=== PATIENT | female | born 1955 | race Caucasian/White ===

== ENCOUNTER 2016-08-10 16:32 | Emergency (ER) | payer OTHER, MEDICARE ==
[2016-08-10] MEDS ORDERED: ONDANSETRON 4 MG/2 ML VIAL IVP STA (17:00)
[2016-08-10] MEDS ORDERED: ONDANSETRON 4 MG/2 ML VIAL ONE (17:21)
[2016-08-10] MEDS ORDERED: HYDROmorphone 1 MG/ML SYRINGE IVP STA (17:22)
[2016-08-10] MEDS ORDERED: HYDROmorphone 1 MG/ML SYRINGE ONE (17:35)
[2016-08-10] MEDS ORDERED: PROPARACAINE 0.5% OPHTH DROPS 15 ML ONE (18:25)
[2016-08-10] MEDS ORDERED: PROPARACAINE 0.5% OPHTH DROPS 15 ML RIGHTEYE STA (18:25)
[2016-08-10] MEDS ORDERED: HYDROcod/ACET 5/325 Prepack 6 PO STA (18:30)
[2016-08-10] MEDS ORDERED: HYDROcod/ACET 5/325 Prepack 6 PO ONE (18:35)
== END 2016-08-10 18:48 | disposition home or self-care (01) ==
DX: S00.11XA Contusion of right eyelid and periocular area, initial encounter (principal); W01.190A Fall on same level from slipping, tripping and stumbling with subsequent striking against furniture, initial encounter; Y92.023 Bedroom in mobile home as the place of occurrence of the external cause; I10 Essential (primary) hypertension; E03.9 Hypothyroidism, unspecified; K74.60 Unspecified cirrhosis of liver; M79.7 Fibromyalgia; Z87.891 Personal history of nicotine dependence
CPT/HCPCS: 36415; 70450; 70486; 80053; 83690; 85025; 85610; 85730; 96374; 96375; 99283; 99284; J1170; J3490

== ENCOUNTER 2017-09-02 11:40 | Outpatient (CLI) | payer OTHER, MEDICARE | END 2017-09-02 11:41 | disposition critical access hospital (66) | LOC: EMS 11:40 | PROVIDERS: ATTEND Surgery | DX: R06.00 Dyspnea, unspecified (principal); R05 Cough | CPT/HCPCS: A0425; A0427 ==

== ENCOUNTER 2017-09-02 12:35 | Emergency (ER) | payer OTHER, MEDICARE ==
--- NOTE | 2017-09-02 13:41 | XRAY Report ---
EXAM: CHEST RADIOGRAPHY EXAM DATE: 09/02/2017 01:26 PM. CLINICAL HISTORY: Productive cough, soa. COMPARISON: None. TECHNIQUE: 2 views. FINDINGS: There is minimal scar of the left upper lung. The lungs appear otherwise clear. No pneumothorax or pleural effusion. Mediastinum otherwise unremark able. 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 is noted. IMPRESSION: No evidence of acute thoracic process [facility] Referring Provider Line: [phone] SITE ID: [id number]
[2017-09-02] MEDS ORDERED: IPRATROPIUM/ALBUTEROL 3 ML NEB INH STA (13:53)
[2017-09-02] MEDS ORDERED: DEXAMETHASONE 10 MG/ML VIAL IVP STA (13:54)
[2017-09-02] MEDS ORDERED: oxyCOD/ACETAMIN 5 MG/325 MG TABLET PO STA (13:54)
--- NOTE | 2017-09-02 13:59 | ED Physician Documentation ---
PD HPI DYSPNEA - Stated complaint Stated Complaint: COPD - Chief complaint Chief Complaint: Resp - History obtained from History obtained from: Patient - History of Present Illness Timing - onset: How many weeks ago (1) Timing - details: Waxing and waning Worsened by: Coughing Associated symptoms: Fever, Cough, Chest pain / discomfort Similar symptoms before: Diagnosis (COPD) - Treatment prior to arrival Treatment prior to arrival: Medics administered DuoNeb. - Additional information Additional information: Patient is a 62-year-old female with history of COPD who presents with shortness of breath that has been waxing and waning for the past week. She reports productive cough and low-grade fever to 100. She also has been experiencing chest discomfort that she describes as "like someone sitting on it. " Her pain is been waxing and waning for the past week. In addition she complains of myalgias, fatigue, headache, vomiting, and dysuria. She reports having chronic loose stools. Because of chronic pain syndrome she takes Dilaudid 2 mg 4 times daily. Last week she finished a course of doxycycline and burst of prednisone. Medics administered DuoNeb in the prehospital setting. Review of Systems Constitutional: reports: Fever, Myalgias, Fatigue Ears: denies: Tinnitus/ringing Nose: denies: Congestion Throat: denies: Sore throat Cardiac: reports: Chest pain / pressure. denies: Palpitations Respiratory: reports: Dyspnea, Cough GI: reports: Abdominal Pain, Nausea, Vomiting, Diarrhea : reports: Dysuria Skin: denies: Rash Musculoskeletal: denies: Back pain, Extremity swelling Neurologic: reports: Headache. 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 - Present Medications Home Medications: Ambulatory Orders Medication Instructions Recorded Confirmed Albuterol Sulfate 0 mg IH 06/10/13 10/15/14 Beclomethasone 40 Mcg [Qvar 40] 1 puffs INH BID 06/10/13 10/15/14 Hydrocodone/Acetaminophen [Vicodin 1 each PO Q6-8H PRN #15 tablet 06/10/1310/15 Es 7.5-300 mg Tablet] Ipratropium/Albuterol Inhaler 2 puffs INH QID PRN 06/10/13 10/15/14 [Combivent Inhaler] Levofloxacin 750 mg PO DAILY #10 tablet 06/10/13 10/15/14 Levothyroxine [Synthroid] 100 mcg PO QDAC 06/10/13 10/15/14 Lorazepam 2 mg PO BID 06/10/13 10/15/14 SUMAtriptan [Imitrex] 100 mg PO ONCE PRN 06/10/13 10/15/14 Topiramate 25 mg PO DAILY 06/10/13 10/15/14 Zolpidem [Ambien] 5 mg PO HS PRN 06/10/13 10/15/14 predniSONE [Deltasone] 60 mg PO DAILY 5 Days tablet 06/10/13 10/15/14 Azithromycin [Zithromax] 250 mg PO DAILY #6 tablet 09/02/17 HYDROmorphone [Dilaudid] 2 mg PO Q6H #10 tablet 09/02/17 predniSONE [Prednisone] 3 tab PO DAILY #15 tablet 09/02/17 - Allergies Allergies/Adverse Reactions: Allergies Allergy/AdvReac Type Severity Reaction Status Date / Time codeine [Codeine] Allergy tacycardia Verified 09/02/17 12:46 erythromycin base Allergy Hives Verified 09/02/17 12:46 [Erythromycin Base] ibuprofen [From Motrin] Allergy unknown Verified 09/02/17 12:46 ketorolac tromethamine * AdvReac Intermediate Dizziness Verified 09/02/17 12:46 [From Toradol] - Social History Does the pt smoke?: No Smoking Status: Former smoker Does the pt drink ETOH?: No Does the pt have substance abuse?: No - Immunizations Immunizations are current?: Yes PD ED PE NORMAL - Vitals Vital signs reviewed: Yes (Mildly tachycardic and hypertensive.) - General General: Alert and oriented X 3, Well developed/nourished, Other (Appears chronically deconditioned.) - HEENT HEENT: Atraumatic, EOMI, Moist mucous membranes, Pharynx benign - Neck Neck: No adenopathy, No JVD - Cardiac Cardiac: RRR, No murmur - Respiratory Respiratory: Other (Diffuse expiratory wheezing bilaterally without rales or rhonchi. Tenderness to palpation of the chest wall bilaterally.) - Abdomen Abdomen: Soft, Non tender - Back Back: No CVA TTP - Derm Derm: No rash - Extremities Extremities: No edema, No calf tenderness / cord - Neuro Neuro: Alert and oriented X 3, No motor deficit, No sensory deficit Results - Vitals Vitals: Vital Signs - 24 hr 09/02/17 09/02/17 09/02/17 12:41 14:29 14:33 Temperature 36.2 C L Heart Rate 102 H 102 H 103 H Respiratory 18 17 16 Rate Blood Pressure 145/100 H 138/76 H O2 Saturation 96 99 09/02/17 09/02/17 09/02/17 14:55 15:30 16:34 Temperature Heart Rate 106 H 99 109 H Respiratory 17 16 20 Rate Blood Pressure 153/103 H 155/89 H O2 Saturation 95 95 09/02/17 18:08 Temperature Heart Rate 100 Respiratory 18 Rate Blood Pressure 141/88 H O2 Saturation 96 Oxygen O2 Source Room air - EKG (time done) 12:54 Rate: Rate (enter#) (101) Rhythm: Sinus tachycardia, LAE [place]: Normal Intervals: Prolonged QT Ischemia: Non specific changes Compare to prior EKG: Unchanged from prior EKG (Unchanged compared to prior EKG dated 10/15/2014.) Computer interpretation: Agree with computer - Labs Labs: Laboratory Tests 09/02/17 09/02/17 09/02/17 13:56 13:56 13:56 WBC 9.3 RBC 5.11 Hgb 14.9 Hct 44.1 MCV 86.4 MCH 29.1 MCHC 33.7 RDW 14.9 Plt Count 336 MPV 6.9 L Neut # 7.3 H Lymph # 1.6 [place] # 0.4 Eos # 0.0 Baso # 0.1 Absolute Nucleated RBC 0.00 Nucleated RBC % 0.0 Sodium 137 Potassium 4.1 Chloride 102 Carbon Dioxide 22 Anion Gap 13.0 BUN 10 Creatinine 0.8 Estimated GFR (MDRD) 73 L Glucose 109 H Calcium 9.1 Total Bilirubin 1.3 H AST 27 ALT 25 Alkaline Phosphatase 81 Troponin I < 0.04 Total Protein 6.9 Albumin 4.2 Globulin 2.7 Albumin/Globulin Ratio 1.6 Lipase 23 Influenza A (Rapid) Influenza B (Rapid) Influenza Types A,B Ag 09/02/17 16:59 WBC RBC Hgb Hct MCV MCH MCHC RDW Plt Count MPV Neut # Lymph # [place] # Eos # Baso # Absolute Nucleated RBC Nucleated RBC % Sodium Potassium Chloride Carbon Dioxide Anion Gap BUN Creatinine Estimated GFR (MDRD) Glucose Calcium Total Bilirubin AST ALT Alkaline Phosphatase Troponin I Total Protein Albumin Globulin Albumin/Globulin Ratio Lipase Influenza A (Rapid) Negative Influenza B (Rapid) Negative Influenza Types A,B Ag - - Rads (name of study) CXR Radiology: Prelim report reviewed, EMP read contemporaneously, See rad report ( No acute intrathoracic process identified.) PD MEDICAL DECISION MAKING - ED course Complexity details: reviewed old records, reviewed results, re-evaluated patient , considered differential, d/w patient, d/w family ED course: The patient's presentation is most consistent with an acute exacerbation of COPD. Chest x-ray reveals no infiltrate to suggest pneumonia. Her presentation does not suggest congestive heart failure, and I doubt pulmonary embolus. Treatment in the emergency department included administration of DuoNeb nebulizer, followed by Xopenex nebulizer treatment. Dexamethasone 10 mg was administered orally, and Percocet 1 tablet was administered orally. Because of continued chest wall pain, caused by coughing, Dilaudid 1 mg was administered IV. Zithromax 500 mg administered orally. At the time of discharge the patient's respiratory symptoms have improved, although she continues to have expiratory wheezes. Her air movement has improved and she feels subjectively better. She is being discharged with prescription for prednisone, Zithromax, and short course of Dilaudid. I discussed with her and her the diagnosis, outpatient treatment and follow-up, as well as potentially worrisome signs or symptoms that should prompt reevaluation in the emergency department. Departure - Departure Disposition: 01 Home, Self Care Clinical Impression: Acute exacerbation of chronic obstructive pulmonary disease (COPD), Chest wall pain Condition: Stable Instructions: ED COPD Flare Follow-Up: CHASE HAAS [Primary Care Provider] - Prescriptions: Azithromycin [Zithromax] 250 mg PO DAILY #6 tablet HYDROmorphone [Dilaudid] 2 mg PO Q6H #10 tablet predniSONE [Prednisone] 3 tab PO DAILY #15 tablet Comments: Continue nebulizer treatments as frequently as every 3 or 4 hours if needed. Take prednisone daily as prescribed for 5 days. Take Zithromax daily as prescribed. Take probiotic while on antibiotic therapy. Follow up with your primary physician within 1 week. Call to schedule an appointment. Return to the emergency department if you develop increasing difficulty breathing, or otherwise worsening symptoms. Discharge Date/Time: 09/02/17 18:08
[2017-09-02 14:00] LABS: BASOPHILS # (AUTO) 0.1 10^3/uL (0.0-0.1); BASOPHILS % (AUTO) 0.7 %; EOSINOPHILS % (AUTO) 0.5 %; HGB - HEMOGLOBIN 14.9 g/dL (12.0-16.0); LYMPHOCYTES # (AUTO) 1.6 10^3/uL (1.5-3.5); LYMPHOCYTES % (AUTO) 16.7 %; MEAN CORPUSCULAR HEMOGLOBIN 29.1 pg (27.0-31.0); MEAN CORPUSCULAR HGB CONC 33.7 g/dL (32.0-36.0); MEAN CORPUSCULAR VOLUME 86.4 fL (81.0-99.0); MEAN PLATELET VOLUME 6.9 fL (7.9-10.8); MONOCYTES # (AUTO) 0.4 10^3/uL (0.0-1.0); MONOCYTES % (AUTO) 4.3 %; NEUTROPHILS # (AUTO) 7.3 10^3/uL (1.5-6.6); NEUTROPHILS % (AUTO) 77.8 %; PLT - PLATELET COUNT 336 10^3/uL (130-450); RED BLOOD COUNT 5.11 10^6/uL (4.20-5.40); RED CELL DISTRIBUTION WIDTH 14.9 % (12.0-15.0); WHITE BLOOD COUNT 9.3 x10^3/uL (4.8-10.8)
[2017-09-02 14:15] LABS: ALBUMIN 4.2 g/dL (3.2-5.5); ALBUMIN/GLOBULIN RATIO 1.6 (1.0-2.2); BILIRUBIN,TOTAL 1.3 mg/dL (0.2-1.0); CALCIUM 9.1 mg/dL (8.5-10.3); CREATININE 0.8 mg/dL (0.4-1.0); TOTAL PROTEIN 6.9 g/dL (6.7-8.2)
[2017-09-02] MEDS ORDERED: HYDROmorphone 1 MG/ML SYRINGE IVP STA (14:34)
[2017-09-02] MEDS ORDERED: LEVALBUTEROL 1.25 MG/3 ML NEB INH STA (16:13)
[2017-09-02] MEDS ORDERED: AZITHROMYCIN 250 MG TABLET PO STA (17:50)
[2017-09-02 18:08] VITALS: BP 141/88
== END 2017-09-02 18:08 | disposition home or self-care (01) ==
LOC: EDUNIT# → ED 12:35
DX: J44.1 Chronic obstructive pulmonary disease with (acute) exacerbation (principal); R07.89 Other chest pain; I10 Essential (primary) hypertension; E03.9 Hypothyroidism, unspecified; Z87.891 Personal history of nicotine dependence
CPT/HCPCS: 36415; 71046; 80053; 83690; 84484; 85025; 87275; 87276; 93005; 94640; 96374; 96375; 99284; 99285; A9270; J1170; J7614; J7620

== ENCOUNTER 2017-11-13 14:14 | Outpatient (CLI) | payer OTHER, MEDICARE | END 2017-11-13 14:15 | disposition short-term general hospital (02) | LOC: EMS 14:14 | PROVIDERS: ATTEND Surgery | DX: R06.00 Dyspnea, unspecified (principal); R50.9 Fever, unspecified; R05 Cough | CPT/HCPCS: A0425; A0427 ==

== ENCOUNTER 2019-01-18 16:42 | Outpatient (CLI) | payer OTHER, MEDICARE | END 2019-01-18 16:43 | disposition short-term general hospital (02) | LOC: EMS 16:42 | PROVIDERS: ATTEND Surgery | DX: R06.00 Dyspnea, unspecified (principal) | CPT/HCPCS: A0425; A0427 ==

== ENCOUNTER 2019-05-23 14:41 | Emergency (ER) | payer OTHER, MEDICARE ==
[2019-05-23] MEDS ORDERED: HYDROmorphone 1 MG/ML CARPUJECT IM STA ×2 (16:13→17:11)
--- NOTE | 2019-05-23 16:22 | ED Physician Documentation ---
PD HPI Fall - Stated complaint Stated Complaint: HEAD/BILAT HIP PX/FALL - Chief complaint Chief Complaint: Trauma Hd/Nk - History obtained from History obtained from: Patient, Family - History of Present Illness Mechanism of injury: Slipped Fall distance: Standing position Where injury occurred: Home Timing - onset: How many days ago (several days) Injury(ies) location: Head, Left Lower Extremity (hip). No: Neck, Chest, Abdomen, Back Pain level max: 8 Pain level now: 8 Quality of pain: Pain, Throbbing, Aching, Dull Associated symptoms: Other (continued, worsening headache). No: LOC, AMS Symptoms improve with: Rest Worsens with: Movement, Palpation Contributing factors: No: Anticoagulated, Intoxicated Recently seen: Not recently seen - Additional information Additional information: takes dilaudid for chronic pain at home Review of Systems Constitutional: denies: Fever, Chills GI: denies: Vomiting, Diarrhea Skin: denies: Rash Musculoskeletal: denies: Neck pain, Back pain Neurologic: denies: Focal weakness, Numbness 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, 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, 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 - Present Medications Home Medications: Ambulatory Orders Medication Instructions Recorded Confirmed Albuterol Sulfate 0 mg IH 06/10/13 10/15/14 Beclomethasone 40 Mcg [Qvar 40] 1 puffs INH BID 06/10/13 10/15/14 Hydrocodone/Acetaminophen [Vicodin 1 each PO Q6-8H PRN #15 tablet 06/10/13 10/15/14 Es 7.5-300 mg Tablet] Ipratropium/Albuterol Inhaler 2 puffs INH QID PRN 06/10/13 10/15/14 [Combivent Inhaler] Levofloxacin 750 mg PO DAILY #10 tablet 06/10/13 10/15/14 Levothyroxine [Synthroid] 100 mcg PO QDAC 06/10/13 10/15/14 Lorazepam 2 mg PO BID 06/10/13 10/15/14 SUMAtriptan [Imitrex] 100 mg PO ONCE PRN 06/10/13 10/15/14 Topiramate 25 mg PO DAILY 06/10/13 10/15/14 Zolpidem [Ambien] 5 mg PO HS PRN 06/10/13 10/15/14 predniSONE [Deltasone] 60 mg PO DAILY 5 Days tablet 06/10/13 10/15/14 Azithromycin [Zithromax] 250 mg PO DAILY #6 tablet 09/02/17 HYDROmorphone [Dilaudid] 2 mg PO Q6H #10 tablet 09/02/17 predniSONE [Prednisone] 3 tab PO DAILY #15 tablet 09/02/17 - Allergies Allergies/Adverse Reactions: Allergies Allergy/AdvReac Type Severity Reaction Status Date / Time codeine [Codeine] Allergy tacycardia Verified 05/23/19 14:51 erythromycin base Allergy Hives Verified 05/23/19 14:51 [Erythromycin Base] ibuprofen [From Motrin] Allergy unknown Verified 05/23/19 14:51 ketorolac tromethamine * AdvReac Intermediate Dizziness Verified 05/23/19 14:51 [From Toradol] - Social History Does the pt smoke?: No Smoking Status: Never smoker Does the pt drink ETOH?: No Does the pt have substance abuse?: No - Immunizations Immunizations are current?: Yes PD ED PE NORMAL - Vitals Vital signs reviewed: Yes - General General: Alert and oriented X 3, No acute distress, Well developed/nourished - HEENT HEENT: Atraumatic, PERRL, Ears normal, Moist mucous membranes, Pharynx benign - Neck Neck: Supple, no meningeal sign, No bony TTP - Cardiac Cardiac: RRR - Respiratory Respiratory: No respiratory distress, Clear bilaterally - Abdomen Abdomen: Soft, Non tender, Non distended - Back Back: No spinal TTP - Derm Derm: Warm and dry - Extremities Extremities: No deformity, Other (Ecchymosis to the left buttock. Tender to palpation over the left hip. Full range of motion present but with pain. 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, No motor deficit, No sensory deficit, Normal speech Eye Opening: Spontaneous Motor: Obeys Commands Verbal: Oriented GCS Score: 15 - Psych Psych: Normal mood, Normal affect Results - Vitals Vitals: Vital Signs - 24 hr 05/23/19 05/23/19 14:51 16:59 Temperature 36.6 C Heart Rate 90 88 Respiratory 17 20 Rate Blood Pressure 165/110 H 150/98 H O2 Saturation 97 Oxygen O2 Source Room air - Rads (name of study) Head CT Radiology: Prelim report reviewed, EMP read contemporaneously, See rad report (No acute abnormality) Left hip x-ray Radiology: Prelim report reviewed, EMP read contemporaneously, See rad report (No acute abnormality) PD MEDICAL DECISION MAKING - ED course Complexity details: reviewed results, re-evaluated patient, considered differential, d/w patient, d/w family ED course: Pain well controlled. She has Dilaudid at home for pain. No acute findings on x-ray or CT. Ambulating well. We will have her follow-up with her doctor for further care. Patient counseled regarding signs and symptoms for which I believe and urgent re-evaluation would be necessary. Patient with good understanding of and agreement to plan and is comfortable going home at this time This document was made in part using voice recognition software. While efforts are made to proofread this document, sound alike and grammatical errors may occur. Departure - Departure Disposition: 01 Home, Self Care Clinical Impression: Head injury Qualifiers: Encounter type: initial encounter Qualified Code(s): S09.90XA - Unspecified injury of head, initial encounter Contusion of left hip Qualifiers: Encounter type: initial encounter Qualified Code(s): S70.02XA - Contusion of left hip, initial encounter Condition: Good Instructions: ED Contusion Lower Ext, ED Head Injury Closed Follow-Up: SHERMAN SANTACRUZ MD [Primary Care Provider] - Within 1 week Comments: Your tests are normal today. Return if you worsen. Follow-up with your doctor for further care. Discharge Date/Time: 05/23/19 17:40
--- NOTE | 2019-05-23 16:52 | XRAY Report ---
Reason: L hip pain s/p fall Procedure Date: 05/23/2019 Accession Number: [id number] / [id number] Procedure: XR - Hip w/Pelvis 2-3V LT CPT Code: FULL RESULT: EXAM: LEFT HIP RADIOGRAPHY EXAM DATE: 05/23/2019 04:28 PM. CLINICAL HISTORY: L hip pain s/p fall. COMPARISON: XR HIP UNILAT MIN 2 VIEW 02/03/2012 3:11 PM. TECHNIQUE: 2 views. FINDINGS: Bones: Decreased bone mineralization. No fracture. Joints: No dislocation. Preserved joint spaces. Lower lumbar facet degenerative arthropathy Soft Tissues: Normal. No soft tissue swelling. IMPRESSION: 1. No fracture or dislocation. 2. Decreased bone mineralization. If pain persists, MR to evaluate. [facility]
--- NOTE | 2019-05-23 17:06 | CT Report ---
Reason: head injury, headache Procedure Date: 05/23/2019 Accession Number: [id number] / [id number] Procedure: CT - HEAD WO CPT Code: FULL RESULT: EXAM: CT HEAD EXAM DATE: 05/23/2019 04:39 PM. CLINICAL HISTORY: Head injury, headache. COMPARISON: HEAD W/O 08/10/2016 5:10 PM. TECHNIQUE: Multiaxial CT images were obtained from the foramen magnum to the vertex. Reformats: Sagittal and coronal. IV contrast: None. In accordance with CT protocol optimization, one or more of the following dose reduction techniques were utilized for this exam: automated exposure control, adjustment of mA and/or KV based on patient size, or use of iterative reconstructive technique. FINDINGS: Parenchyma: No intraparenchymal hemorrhage. No evidence of mass, midline shift, or CT findings of infarction. Banda-white differentiation is distinct. Chronic small vessel ischemic changes. Extraaxial Spaces: Normal for age. No subdural or epidural collections identified. Ventricles: Normal in size and position. Sinuses and Orbits: Imaged paranasal sinuses, orbits, and mastoids show no significant abnormality. Bones: No evidence of fracture or calvarial defect. Other: None. IMPRESSION: No acute intracranial process [facility]
[2019-05-23 17:59] VITALS: BP 150/98
== END 2019-05-23 17:40 | disposition home or self-care (01) ==
LOC: ED 14:41
DX: S09.90XA Unspecified injury of head, initial encounter (principal); S70.02XA Contusion of left hip, initial encounter; S30.0XXA Contusion of lower back and pelvis, initial encounter; W01.0XXA Fall on same level from slipping, tripping and stumbling without subsequent striking against object, initial encounter; Y92.009 Unspecified place in unspecified non-institutional (private) residence as the place of occurrence of the external cause; I10 Essential (primary) hypertension
CPT/HCPCS: 70450; 73502; 96372; 99284; J1170

== ENCOUNTER 2019-10-12 09:40 | Outpatient (CLI) | payer OTHER, MEDICARE | END 2019-10-12 09:41 | disposition short-term general hospital (02) | LOC: EMS 09:40 | PROVIDERS: ATTEND Surgery | DX: R06.02 Shortness of breath (principal); R50.9 Fever, unspecified; R51 Headache | CPT/HCPCS: A0425; A0429 ==

== ENCOUNTER 2020-03-27 23:20 | Outpatient (CLI) | payer OTHER, MEDICARE | END 2020-03-27 23:21 | disposition critical access hospital (66) | LOC: EMS 23:20 | PROVIDERS: ATTEND Surgery | DX: R55 Syncope and collapse (principal); R41.82 Altered mental status, unspecified | CPT/HCPCS: A0425; A0429 ==

== ENCOUNTER 2020-03-27 23:56 | Emergency (ER) | payer OTHER, MEDICARE ==
--- NOTE | 2020-03-27 23:49 | ED Physician Documentation ---
History of Present Illness - Stated complaint Stated Complaint: GLF, AMS - History obtained from History obtained from: Patient - Additonal information Additional information: Patient is a 65-year-old female who takes Dilaudid for chronic pain tonight she took a dose of Dilaudid and then when she got up she kind of slumped to the ground she presented via ambulance she denies any complaints currently denies any chest pain fevers chills night sweats shortness of breath or syncope and is requesting to be discharged home. Review of Systems Ten Systems: 10 systems reviewed and negative Constitutional: reports: Reviewed and negative Eyes: reports: Reviewed and negative Ears: reports: Reviewed and negative Nose: reports: Reviewed and negative Throat: reports: Reviewed and negative Cardiac: reports: Reviewed and negative Respiratory: reports: Reviewed and negative GI: reports: Reviewed and negative : reports: Reviewed and negative Skin: reports: Reviewed and negative Musculoskeletal: reports: Reviewed and negative Neurologic: reports: Reviewed and negative Psychiatric: reports: Reviewed and negative Endocrine: reports: Reviewed and negative Immunocompromised: reports: Reviewed and negative PD PAST MEDICAL HISTORY - Present Medications Home Medications: Ambulatory Orders Medication Instructions Recorded Confirmed Albuterol Sulfate 0 mg IH 06/10/13 10/15/14 Beclomethasone 40 Mcg [Qvar 40] 1 puffs INH BID 06/10/13 10/15/14 Hydrocodone/Acetaminophen [Vicodin 1 each PO Q6-8H PRN #15 tablet 06/10/13 10/15/14 Es 7.5-300 mg Tablet] Ipratropium/Albuterol Inhaler 2 puffs INH QID PRN 06/10/13 10/15/14 [Combivent Inhaler] Levofloxacin 750 mg PO DAILY #10 tablet 06/10/13 10/15/14 Levothyroxine [Synthroid] 100 mcg PO QDAC 06/10/13 10/15/14 Lorazepam 2 mg PO BID 06/10/13 10/15/14 SUMAtriptan [Imitrex] 100 mg PO ONCE PRN 06/10/13 10/15/14 Topiramate 25 mg PO DAILY 06/10/13 10/15/14 Zolpidem [Ambien] 5 mg PO HS PRN 06/10/13 10/15/14 predniSONE [Deltasone] 60 mg PO DAILY 5 Days tablet 06/10/13 10/15/14 Azithromycin [Zithromax] 250 mg PO DAILY #6 tablet 09/02/17 HYDROmorphone [Dilaudid] 2 mg PO Q6H #10 tablet 09/02/17 predniSONE [Prednisone] 3 tab PO DAILY #15 tablet 09/02/17 - Allergies Allergies/Adverse Reactions: Allergies Allergy/AdvReac Type Severity Reaction Status Date / Time codeine [Codeine] Allergy tacycardia Verified 03/28/20 00:04 erythromycin base Allergy Hives Verified 03/28/20 00:04 [Erythromycin Base] ibuprofen [From Motrin] Allergy unknown Verified 03/28/20 00:04 ketorolac tromethamine * AdvReac Intermediate Dizziness Verified 03/28/20 00:04 [From Toradol] PD ED PE NORMAL - Vitals Vital signs reviewed: Yes - General General: Alert and oriented X 3, No acute distress - HEENT HEENT: PERRL - Neck Neck: Supple, no meningeal sign - Cardiac Cardiac: RRR, No murmur - Respiratory Respiratory: Clear bilaterally - Abdomen Abdomen: Normal bowel sounds, Soft, Non tender, Non distended - Derm Derm: Warm and dry - Extremities Extremities: No deformity - Neuro Neuro: Alert and oriented X 3 - Psych Psych: Normal mood, Normal affect Results - Vitals Vitals: Vital Signs - 24 hr 03/28/20 03/28/20 03/28/20 00:04 01:05 01:41 Temperature 36.1 C L Heart Rate 74 65 71 Respiratory 16 18 18 Rate Blood Pressure 124/68 112/60 110/60 O2 Saturation 97 98 98 Oxygen O2 Source Room air PD MEDICAL DECISION MAKING - ED course Complexity details: considered differential (Adverse side effect from opioid use.) Departure - Departure Disposition: 01 Home, Self Care Clinical Impression: Fall Qualifiers: Encounter type: initial encounter Qualified Code(s): W19.XXXA - Unspecified fall, initial encounter Chronic pain Qualifiers: Chronic pain type: other chronic pain Qualified Code(s): G89.29 - Other chronic pain Condition: Stable Instructions: ED Chronic Pain Management Follow-Up: SHERMAN SANTACRUZ MD [Primary Care Provider] - Comments: Please follow-up with your primary care provider today. Discharge Date/Time: 03/28/20 01:42
[2020-03-28 01:42] VITALS: BP 110/60
== END 2020-03-28 01:42 | disposition home or self-care (01) ==
LOC: EDUNIT# → ED 23:56
DX: Z03.89 Encounter for observation for other suspected diseases and conditions ruled out (principal); G89.29 Other chronic pain; Z79.891 Long term (current) use of opiate analgesic
CPT/HCPCS: 99283

== ENCOUNTER 2020-04-30 17:00 | Outpatient (CLI) | payer OTHER, MEDICARE | END 2020-04-30 17:01 | disposition critical access hospital (66) | LOC: EMS 17:00 | PROVIDERS: ATTEND Surgery | DX: R26.0 Ataxic gait (principal); R26.81 Unsteadiness on feet; R45.89 Other symptoms and signs involving emotional state | CPT/HCPCS: A0425; A0429 ==

== ENCOUNTER 2020-04-30 17:38 | Emergency (ER) | payer OTHER, MEDICARE ==
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
[2020-04-30] MEDS ORDERED: HYDROmorphone 2 MG TABLET PO STA ×2 (18:39→22:13)
[2020-04-30 18:49] LABS: MUDS CUTOFF CONCENTRATIONS CUTOFF CONC BELOW:
[2020-04-30 18:51] LABS: BILIRUBIN,URINE NEGATIVE (NEGATIVE); GLUCOSE, URINE (UA) NEGATIVE (NEGATIVE); KETONES,URINE (UA) NEGATIVE (NEGATIVE); LEUKOCYTE ESTERASE, URINE NEGATIVE (NEGATIVE); NITRITE,URINE NEGATIVE (NEGATIVE); OCCULT BLOOD,URINE SMALL (NEGATIVE); PH,URINE 6.5 PH (5.0-7.5); PROTEIN,URINE NEGATIVE (NEGATIVE); UROBILINOGEN,URINE 0.2 (NORMAL) E.U./dL (NORMAL)
[2020-04-30 18:55] LABS: CLARITY,URINE CLEAR (CLEAR)
[2020-04-30 18:59] LABS: BASOPHILS # (AUTO) 0.1 10^3/uL (0.0-0.1); BASOPHILS % (AUTO) 0.6 %; EOSINOPHILS % (AUTO) 0.4 %; LYMPHOCYTES # (AUTO) 3.1 10^3/uL (1.5-3.5); LYMPHOCYTES % (AUTO) 29.7 %; MEAN CORPUSCULAR HEMOGLOBIN 31.1 pg (27.0-31.0); MEAN CORPUSCULAR HGB CONC 34.3 g/dL (32.0-36.0); MEAN CORPUSCULAR VOLUME 90.5 fL (81.0-99.0); MEAN PLATELET VOLUME 8.4 fL (7.9-10.8); MONOCYTES # (AUTO) 0.6 10^3/uL (0.0-1.0); MONOCYTES % (AUTO) 5.5 %; NEUTROPHILS # (AUTO) 6.5 10^3/uL (1.5-6.6); NEUTROPHILS % (AUTO) 63.3 %; PLT - PLATELET COUNT 373 10^3/uL (130-450); RED BLOOD COUNT 4.83 10^6/uL (4.20-5.40); RED CELL DISTRIBUTION WIDTH 12.7 % (12.0-15.0); WHITE BLOOD COUNT 10.3 x10^3/uL (4.8-10.8)
[2020-04-30 19:06] LABS: SQUAMOUS EPITHELIAL CELL,UR RARE Squamous (<= Few)
[2020-04-30 19:07] LABS: BACTERIA,URINE Rare /HPF (None Seen); COCAINE SCREEN URINE NEGATIVE (NEGATIVE)
[2020-04-30 19:08] LABS: AMPHETAMINE SCREEN,URINE NEGATIVE (NEGATIVE); BENZODIAZEPINES SCREEN, URINE NEGATIVE (NEGATIVE); METHADONE SCREEN, URINE NEGATIVE (NEGATIVE); METHAMPHETAMINES SCREEN, URINE NEGATIVE (NEGATIVE); OPIATE SCREEN, URINE POSITIVE (NEGATIVE); OXYCODONE SCREEN, URINE NEGATIVE (NEGATIVE); PROPOXYPHENE SCREEN, URINE NEGATIVE (NEGATIVE); TRICYCLIC ANTIDEPRESSANT,URINE NEGATIVE (NEGATIVE)
[2020-04-30 19:13] LABS: ACETAMINOPHEN < 10 ug/mL (10-30); ALBUMIN 4.3 g/dL (3.2-5.5); ALBUMIN/GLOBULIN RATIO 1.5 (1.0-2.2); ALKALINE PHOSPHATASE 70 IU/L (42-121); ALT ALANINE AMINOTRANSFERASE 24 IU/L (10-60); AST ASPARTATE AMINOTRANSFERASE 21 IU/L (10-42); BILIRUBIN,TOTAL 0.8 mg/dL (0.2-1.0); BUN - BLOOD UREA NITROGEN 9 mg/dL (6-20); CARBON DIOXIDE - CO2 23 mmol/L (21-32); CHLORIDE 101 mmol/L (101-111); CREATININE 0.8 mg/dL (0.4-1.0); GLUCOSE 95 mg/dL (70-100); LIPASE 20 U/L (22-51); SALICYLATE < 6.0 mg/dL; SODIUM 138 mmol/L (135-145); TOTAL PROTEIN 7.2 g/dL (6.7-8.2)
[2020-04-30] MEDS ORDERED: NICOTINE 21 MG PATCH TOP STA (19:52)
[2020-04-30] MEDS ORDERED: CYCLOBENZAPRINE 10 MG TABLET PO STA (19:53)
[2020-04-30] MEDS ORDERED: clonazePAM 0.5 MG TABLET PO STA (21:16)
[2020-04-30] MEDS: ALBUTEROL 1 PUFF INH PRN (22:38)
[2020-05-01] MEDS ORDERED: HYDROmorphone 2 MG TABLET PO STA ×2 (02:49→08:28)
[2020-05-01] MEDS ORDERED: LORazepam 0.5 MG TABLET PO STA (02:50)
[2020-05-01] MEDS: ALBUTEROL 1 PUFF INH PRN (04:32)
[2020-05-01] MEDS ORDERED: METOPROLOL SUCCINATE 50 MG TABLET PO STA (07:30)
[2020-05-01] MEDS ORDERED: LORazepam 1 MG TABLET PO STA (08:28)
[2020-05-01 09:14] VITALS: BP 139/87
== END 2020-05-01 09:23 | disposition home or self-care (01) ==
LOC: EDUNIT# → ED 17:38
DX: R45.851 Suicidal ideations (principal); Z20.828 Contact with and (suspected) exposure to other viral communicable diseases
CPT/HCPCS: 36415; 80320; 80329; 81001; 83690; 87635; 94640; 99281; 99284; A9270; J8499; 80053; 80306; 80307; 81003; 84443; 85025; 87086

== ENCOUNTER 2020-05-11 20:53 | Outpatient (CLI) | payer OTHER, MEDICARE | END 2020-05-11 20:54 | disposition critical access hospital (66) | LOC: EMS 20:53 | PROVIDERS: ATTEND Surgery | DX: R07.89 Other chest pain (principal); R06.02 Shortness of breath; R55 Syncope and collapse | CPT/HCPCS: A0425; A0427 ==

== ENCOUNTER 2020-05-11 21:29 | Emergency (ER) | payer OTHER, MEDICARE ==
[2020-05-11] MEDS ORDERED: DEXAMETHASONE 10 MG/ML VIAL IVP STA (21:44)
[2020-05-11] MEDS ORDERED: HYDROmorphone 1 MG/ML CARPUJECT IVP STA (21:44)
[2020-05-11] MEDS ORDERED: ONDANSETRON 4 MG/2 ML VIAL IVP STA (21:44)
--- NOTE | 2020-05-11 21:46 | ED Physician Documentation ---
PD HPI CHEST PAIN - Stated complaint Stated Complaint: CHEST PRESSURE - Chief complaint Chief Complaint: Cardiac - History obtained from History obtained from: Patient - History of Present Illness Timing - onset: Enter time (1800), Today Timing - onset during: Rest Timing - duration: Hours (2) Timing - details: Abrupt onset, Now resolved Quality: Pressure Location: Left chest Radiation: Back Improved by: Rest Associated symptoms: Shortness of air, Feeling faint / dizzy, Cough Similar symptoms before: Has not had sx before Recently seen: Clinic - Additional information Additional information: 65-year-old female with a history of emphysema has been in to see her rn ortho and he prescribed a course of prednisone and doxycycline and the patient has not received her medications and the mail yet. She was seen 3 days ago and at that time her rn ortho was concerned about focal wheezes in the left base. Today she was sitting at home when she was reclined and began to get pressure in her left chest. She states that she felt that she might even pass out and she became short of breath. She feels that she may have had some anxiety associated with this and she is come to the emergency department. Her shortness of breath is improved and now as is her pain. She started having this pain at 6 PM and it resolved about 8 PM. She called the ambulance at 830. Review of Systems Constitutional: denies: Fever Eyes: denies: Decreased vision Ears: denies: Ear pain Nose: reports: Congestion. denies: Rhinorrhea / runny nose Throat: denies: Sore throat Cardiac: reports: Chest pain / pressure. 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 - Present Medications Home Medications: Ambulatory Orders Medication Instructions Recorded Confirmed Albuterol Sulfate 0 mg IH 06/10/13 10/15/14 Beclomethasone 40 Mcg [Qvar 40] 1 puffs INH BID 06/10/13 10/15/14 Hydrocodone/Acetaminophen [Vicodin 1 each PO Q6-8H PRN #15 tablet 06/10/13 10/15/14 Es 7.5-300 mg Tablet] Ipratropium/Albuterol Inhaler 2 puffs INH QID PRN 06/10/13 10/15/14 [Combivent Inhaler] Levofloxacin 750 mg PO DAILY #10 tablet 06/10/13 10/15/14 Levothyroxine [Synthroid] 100 mcg PO QDAC 06/10/13 10/15/14 Lorazepam 2 mg PO BID 06/10/13 10/15/14 SUMAtriptan [Imitrex] 100 mg PO ONCE PRN 06/10/13 10/15/14 Topiramate 25 mg PO DAILY 06/10/13 10/15/14 Zolpidem [Ambien] 5 mg PO HS PRN 06/10/13 10/15/14 predniSONE [Deltasone] 60 mg PO DAILY 5 Days tablet 06/10/13 10/15/14 Azithromycin [Zithromax] 250 mg PO DAILY #6 tablet 09/02/17 HYDROmorphone [Dilaudid] 2 mg PO Q6H #10 tablet 09/02/17 predniSONE [Prednisone] 3 tab PO DAILY #15 tablet 09/02/17 traMADol [Ultram] 50 - 100 mg PO Q6H PRN #20 tablet 05/12/20 - Allergies Allergies/Adverse Reactions: Allergies Allergy/AdvReac Type Severity Reaction Status Date / Time codeine [Codeine] Allergy tacycardia Verified 05/11/20 21:39 erythromycin base Allergy Hives Verified 05/11/20 21:39 [Erythromycin Base] ibuprofen [From Motrin] Allergy unknown Verified 05/11/20 21:39 ketorolac tromethamine * AdvReac Intermediate Dizziness Verified 05/11/20 21:39 [From Toradol] - Social History Does the pt smoke?: No Smoking Status: Never smoker Does the pt drink ETOH?: No Does the pt have substance abuse?: No - Immunizations Immunizations are current?: Yes - POLST Patient has POLST: No PD ED PE NORMAL - Vitals Vital signs reviewed: Yes (hypertensive ) - General General: Alert and oriented X 3, No acute distress, Well developed/nourished - HEENT HEENT: Atraumatic, PERRL, EOMI - Neck Neck: Supple, no meningeal sign, No bony TTP - Cardiac Cardiac: RRR, No murmur - Respiratory Respiratory: No respiratory distress, Other (faint wheezes bilat. 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, No motor deficit, No sensory deficit, Normal speech Eye Opening: Spontaneous Motor: Obeys Commands Verbal: Oriented GCS Score: 15 - Psych Psych: Normal affect, Other (mood is anxious ) Results - Vitals Vitals: Vital Signs - 24 hr 05/11/20 05/11/20 21:34 23:48 Temperature 36.4 C L Heart Rate 73 65 Respiratory 16 Rate Blood Pressure 147/82 H 116/67 O2 Saturation 96 Oxygen O2 Source Room air - EKG (time done) 2132 Rate: Rate (enter#) (72) Rhythm: NSR Intervals: Prolonged QT Ischemia: Other (flat T waves or inverted in V4 ) Compare to prior EKG: Changed from prior EKG (SPT 09-02-2017 the repolarization abnormalities are more pronounced. (K+ is low today)) Computer interpretation: Disagree with computer (The patient does not have a pacer. ) - Labs Labs: Laboratory Tests 05/11/20 05/11/20 05/11/20 21:50 21:50 21:50 WBC 8.6 RBC 4.20 Hgb 12.9 Hct 38.5 MCV 91.7 MCH 30.7 MCHC 33.5 RDW 13.2 Plt Count 253 MPV 8.6 Neut # (Auto) 5.3 Lymph # (Auto) 1.8 [place] # (Auto) 1.0 Eos # (Auto) 0.5 Baso # (Auto) 0.1 Absolute Nucleated RBC 0.00 Nucleated RBC % 0.0 Sodium 137 Potassium 3.0 L Chloride 100 L Carbon Dioxide 28 Anion Gap 9.0 BUN 18 Creatinine 1.1 H Estimated GFR (MDRD) 50 L Glucose 114 H Calcium 8.8 Total Bilirubin 0.6 AST 18 ALT 15 Alkaline Phosphatase 65 Troponin I High Sens 5.2 Total Protein 5.9 L Albumin 3.7 Globulin 2.2 Albumin/Globulin Ratio 1.7 Lipase 25 Urine Color Urine Clarity Urine pH Ur Specific [place] Urine Protein Urine Glucose (UA) Urine Ketones Urine Occult Blood Urine Nitrite Urine Bilirubin Urine Urobilinogen Ur Leukocyte Esterase Ur Microscopic Review Urine Culture Comments 05/11/20 05/11/20 22:26 23:45 WBC RBC Hgb Hct MCV MCH MCHC RDW Plt Count MPV Neut # (Auto) Lymph # (Auto) [place] # (Auto) Eos # (Auto) Baso # (Auto) Absolute Nucleated RBC Nucleated RBC % Sodium Potassium Chloride Carbon Dioxide Anion Gap BUN Creatinine Estimated GFR (MDRD) Glucose Calcium Total Bilirubin AST ALT Alkaline Phosphatase Troponin I High Sens 4.7 Total Protein Albumin Globulin Albumin/Globulin Ratio Lipase Urine Color DARK YELLOW Urine Clarity CLEAR Urine pH 5.5 Ur Specific [place] >=1.030 H Urine Protein NEGATIVE Urine Glucose (UA) NEGATIVE Urine Ketones TRACE Urine Occult Blood TRACE-INTA Urine Nitrite NEGATIVE Urine Bilirubin NEGATIVE Urine Urobilinogen 0.2 (NORMAL) Ur Leukocyte Esterase NEGATIVE Ur Microscopic Review NOT INDICATED Urine Culture Comments NOT INDICATED - Rads (name of study) Chest Radiology: Prelim report reviewed (Impression: 1. Suspect centrilobular emphysema. No consolidation.), EMP read indepedently (On my reading there is a hint of haziness obscuring the left heart border), See rad report Procedures - IVC sono (time) 2144 Bedside IVC sono: IVC measures (cm) (1.47), [place] PD MEDICAL DECISION MAKING - ED course Complexity details: reviewed results, re-evaluated patient, considered differential, d/w patient ED course: 65-year-old female with a history of emphysema has developed a episode of chest pain and shortness of breath while at rest this evening. Her episode is resolved and here this evening on examination she does have focal wheezes in the left base and a corresponding finding on her chest x-ray concerning for a subtle infiltrate. The patient is treated here in the emergency department with dexamethasone and dilaudid with improvement in her pain and breathing. She is found to have a prolonged QT interval even more so than her prior electrocardiogram and she is administered magnesium as well as potassium as her potassium is low. She has not started her antibiotic as it and she is administered a dose of Rocephin here in the emergency department. Departure - Departure Disposition: 01 Home, Self Care Clinical Impression: Chest wall pain Pneumonia Qualifiers: Pneumonia type: due to unspecified organism Laterality: left Lung location: lower lobe of lung Qualified Code(s): J18.9 - Pneumonia, unspecified organism Condition: Stable Instructions: ED Strain Chest Wall, ED Pneumonia Adult Follow-Up: SHERMAN SANTACRUZ MD [Primary Care Provider] - Prescriptions: traMADol [Ultram] 50 - 100 mg PO Q6H PRN #20 tablet PRN Reason: Pain
[2020-05-11 21:55] LABS: BASOPHILS # (AUTO) 0.1 10^3/uL (0.0-0.1); BASOPHILS % (AUTO) 0.6 %; EOSINOPHILS # (AUTO) 0.5 10^3/uL (0.0-0.7); EOSINOPHILS % (AUTO) 5.2 %; HGB - HEMOGLOBIN 12.9 g/dL (12.0-16.0); LYMPHOCYTES # (AUTO) 1.8 10^3/uL (1.5-3.5); LYMPHOCYTES % (AUTO) 20.5 %; MEAN CORPUSCULAR HEMOGLOBIN 30.7 pg (27.0-31.0); MEAN CORPUSCULAR HGB CONC 33.5 g/dL (32.0-36.0); MEAN CORPUSCULAR VOLUME 91.7 fL (81.0-99.0); MEAN PLATELET VOLUME 8.6 fL (7.9-10.8); MONOCYTES % (AUTO) 11.6 %; NEUTROPHILS # (AUTO) 5.3 10^3/uL (1.5-6.6); NEUTROPHILS % (AUTO) 61.6 %; PLT - PLATELET COUNT 253 10^3/uL (130-450); RED CELL DISTRIBUTION WIDTH 13.2 % (12.0-15.0); WHITE BLOOD COUNT 8.6 x10^3/uL (4.8-10.8)
[2020-05-11 22:09] LABS: ALBUMIN 3.7 g/dL (3.2-5.5); ALBUMIN/GLOBULIN RATIO 1.7 (1.0-2.2); BILIRUBIN,TOTAL 0.6 mg/dL (0.2-1.0); CALCIUM 8.8 mg/dL (8.5-10.3); CREATININE 1.1 mg/dL (0.4-1.0); TOTAL PROTEIN 5.9 g/dL (6.7-8.2)
[2020-05-11 22:31] LABS: GLUCOSE, URINE (UA) NEGATIVE (NEGATIVE); KETONES,URINE (UA) TRACE mg/dL (NEGATIVE); LEUKOCYTE ESTERASE, URINE NEGATIVE (NEGATIVE); NITRITE,URINE NEGATIVE (NEGATIVE); OCCULT BLOOD,URINE TRACE-INTA (NEGATIVE); PH,URINE 5.5 PH (5.0-7.5); PROTEIN,URINE NEGATIVE (NEGATIVE); UROBILINOGEN,URINE 0.2 (NORMAL) E.U./dL (NORMAL)
[2020-05-11 22:35] LABS: BILIRUBIN,URINE NEGATIVE (NEGATIVE); CLARITY,URINE CLEAR (CLEAR); ICTOTEST,URINE NEGATIVE
[2020-05-11] MEDS ORDERED: SODIUM CHLORIDE 0.9% 500 ML IV STA (22:44)
[2020-05-11] MEDS ORDERED: POTASSIUM CHLORIDE 20 MEQ TABLET PO STA (22:45)
[2020-05-11] MEDS ORDERED: MAGNESIUM SULFATE 2 GRAM 2 GM/50 ML BAG IV ONE (22:56)
[2020-05-11 23:48] VITALS: BP 116/67
[2020-05-11] MEDS ORDERED: cefTRIAXone 1 GM in SODIUM CHLORIDE 0.9% MINIBAG 100 ML IV STA (23:58)
[2020-05-12] MEDS ORDERED: cefTRIAXone 1 GM VIAL ONE (00:16)
[2020-05-12] MEDS ORDERED: traMADol 50 MG TABLET PO STA (00:50)
--- NOTE | 2020-05-12 16:18 | XRAY Report ---
PROCEDURE: Chest 1 View X-Ray INDICATIONS: chest pain TECHNIQUE: One view of the chest was acquired. COMPARISON: Chest x-ray 09/02/2017 FINDINGS: Surgical changes and devices: None. Lungs and pleura: There is blunting of the costophrenic angles bilaterally. Overall appearance of emp hysematous changes and hyperinflation are noted. Mediastinum: Mediastinal contours appear normal. Heart size is normal. Bones and chest wall: No suspicious bony lesions. Overlying soft tissues appear unremarkable. IMPRESSION: Blunting of the costophrenic angles is noted bilaterally. This could be related to scarring. Small ibrahim perimposed effusions cannot be excluded. The above findings are concordant with preliminary report. Reviewed by: Maryjo Pfeiffer MD on 05/12/2020 8:24 AM PDT Approved by: Maryjo Pfeiffer MD on 05/12/2020 8:24 AM PDT Station ID: [id number]
== END 2020-05-12 01:07 | disposition home or self-care (01) ==
LOC: ED 21:29
DX: J18.9 Pneumonia, unspecified organism (principal); J43.9 Emphysema, unspecified; R07.89 Other chest pain; E87.6 Hypokalemia; R94.31 Abnormal electrocardiogram [ECG] [EKG]; I10 Essential (primary) hypertension; F41.9 Anxiety disorder, unspecified
CPT/HCPCS: 36415; 71045; 80053; 81003; 83690; 84484; 85025; 93005; 96365; 96366; 96368; 96375; 99284; A9270; J1170; 81001; 87086

== ENCOUNTER 2020-07-22 17:41 | Outpatient (CLI) | payer OTHER, MEDICARE | END 2020-07-22 17:42 | disposition critical access hospital (66) | LOC: EMS 17:41 | PROVIDERS: ATTEND Surgery | DX: R06.02 Shortness of breath (principal); R07.89 Other chest pain; R11.0 Nausea; M54.2 Cervicalgia | CPT/HCPCS: A0425; A0427 ==

== ENCOUNTER 2020-07-22 18:17 | Emergency (ER) | payer OTHER, MEDICARE ==
--- NOTE | 2020-07-22 19:48 | XRAY Report ---
PROCEDURE: Chest 1 View X-Ray INDICATIONS: chest pain TECHNIQUE: One view of the chest was acquired. COMPARISON: 05/11/2020 FINDINGS: Surgical changes and devices: None. Lungs and pleura: No pleural effusions or pneumothorax. Lungs are clear. There is blunting of the left costophrenic angle. Mediastinum: Mediastinal contours appear normal. Heart size is normal. Bones and chest wall: No suspicious bony lesions. Overlying soft tissues appear unremarkable. IMPRESSION: No acute cardiopulmonary abnormality. Reviewed by: Ezequiel Cervantes on 07/22/2020 7:47 PM [facility] Approved by: Ezequiel Cervantes on 07/22/2020 7:47 PM [facility] Station ID: [id number]
[2020-07-22 19:55] LABS: BASOPHILS # (AUTO) 0.1 10^3/uL (0.0-0.1); BASOPHILS % (AUTO) 1.2 %; EOSINOPHILS # (AUTO) 0.7 10^3/uL (0.0-0.7); EOSINOPHILS % (AUTO) 8.4 %; HGB - HEMOGLOBIN 12.5 g/dL (12.0-16.0); LYMPHOCYTES # (AUTO) 2.9 10^3/uL (1.5-3.5); LYMPHOCYTES % (AUTO) 32.9 %; MEAN CORPUSCULAR HEMOGLOBIN 31.3 pg (27.0-31.0); MEAN CORPUSCULAR HGB CONC 33.3 g/dL (32.0-36.0); MEAN CORPUSCULAR VOLUME 93.8 fL (81.0-99.0); MEAN PLATELET VOLUME 8.9 fL (7.9-10.8); MONOCYTES # (AUTO) 0.8 10^3/uL (0.0-1.0); MONOCYTES % (AUTO) 8.9 %; NEUTROPHILS # (AUTO) 4.2 10^3/uL (1.5-6.6); NEUTROPHILS % (AUTO) 48.5 %; PLT - PLATELET COUNT 315 10^3/uL (130-450); RED CELL DISTRIBUTION WIDTH 12.8 % (12.0-15.0); WHITE BLOOD COUNT 8.7 x10^3/uL (4.8-10.8)
[2020-07-22 20:09] LABS: ALBUMIN 3.7 g/dL (3.2-5.5); ALBUMIN/GLOBULIN RATIO 1.7 (1.0-2.2); BILIRUBIN,TOTAL 0.4 mg/dL (0.2-1.0); CALCIUM 8.2 mg/dL (8.5-10.3); CREATININE 0.7 mg/dL (0.4-1.0); TOTAL PROTEIN 5.9 g/dL (6.7-8.2)
[2020-07-22] MEDS ORDERED: IPRATROPIUM/ALBUTEROL 3 ML NEB INH STA (20:09)
[2020-07-22] MEDS ORDERED: HYDROmorphone 1 MG/ML CARPUJECT IVP STA (20:09)
--- NOTE | 2020-07-22 21:42 | ED Physician Documentation ---
PD HPI CHEST PAIN - Stated complaint Stated Complaint: CHEST PAIN - Chief complaint Chief Complaint: Cardiac - History obtained from History obtained from: Patient - Additional information Additional information: PT comes to the ED c/o onset 4 hours ago of R lateral chest tightness and a substernal burning sensation. No SOB. Mild nausea. No recent respiratory illness. Pt states she has a h/o GERD, and this feels similar to prior episodes, which she has had for a long time, but has lasted longer. No history of CAD. Pt quit smoking 9 months ago. No recent FREITAS. Pt states her sx are better overall at this time. Review of Systems Ten Systems: 10 systems reviewed and negative Constitutional: reports: Reviewed and negative Eyes: reports: Reviewed and negative Ears: reports: Reviewed and negative Nose: reports: Reviewed and negative Throat: reports: Reviewed and negative Cardiac: reports: Chest pain / pressure Respiratory: reports: Reviewed and negative. denies: Dyspnea GI: reports: Nausea. denies: Abdominal Pain : reports: Reviewed and negative Skin: reports: Reviewed and negative Musculoskeletal: reports: Reviewed and negative Neurologic: reports: Reviewed and negative Psychiatric: reports: Reviewed and negative Endocrine: reports: Reviewed and negative Immunocompromised: reports: Reviewed and negative PD PAST MEDICAL HISTORY - Past Medical History Cardiovascular: Hypertension Respiratory: COPD Endocrine/Autoimmune: HyPOthyroidism GI: Cirrhosis Psych: Depression, Anxiety Musculoskeletal: Fibromyalgia - Past Surgical History Past Surgical History: Yes General: 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, 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, 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 - Present Medications Home Medications: Ambulatory Orders Medication Instructions Recorded Confirmed Albuterol Sulfate 0.63 mg IH DAILY 06/10/13 07/22/20 Hydrocodone/Acetaminophen [Vicodin 1 each PO Q6-8H PRN #15 tablet 06/10/13 07/22/20 Es 7.5-300 mg Tablet] Ipratropium/Albuterol Inhaler 2 puffs INH QID PRN 06/10/13 07/22/20 [Combivent Inhaler] Levofloxacin 750 mg PO DAILY #10 tablet 06/10/13 07/22/20 Levothyroxine [Synthroid] 100 mcg PO QDAC 06/10/13 07/22/20 SUMAtriptan [Imitrex] 100 mg PO ONCE PRN 06/10/13 07/22/20 HYDROmorphone [Dilaudid] 2 mg PO Q6H #10 tablet 09/02/17 07/22/20 - Allergies Allergies/Adverse Reactions: Allergies Allergy/AdvReac Type Severity Reaction Status Date / Time codeine [Codeine] Allergy tacycardia Verified 07/22/20 18:33 erythromycin base Allergy Hives Verified 07/22/20 18:33 [Erythromycin Base] ibuprofen [From Motrin] Allergy unknown Verified 07/22/20 18:33 ketorolac tromethamine * AdvReac Intermediate Dizziness Verified 07/22/20 18:33 [From Toradol] - Social History Does the pt smoke?: No Smoking Status: Never smoker Does the pt drink ETOH?: No Does the pt have substance abuse?: No Substance Use and Type: Marijuana - Immunizations Immunizations are current?: Yes - POLST Patient has POLST: No PD ED PE NORMAL - Vitals Vital signs reviewed: Yes - General General: Alert and oriented X 3, No acute distress - HEENT HEENT: Atraumatic, PERRL, EOMI, Moist mucous membranes - Neck Neck: Supple, no meningeal sign - Cardiac Cardiac: RRR, No murmur - Respiratory Respiratory: No respiratory distress, Clear bilaterally - Abdomen Abdomen: Soft, Non tender, Non distended - Derm Derm: Normal color, Warm and dry, No rash - Extremities Extremities: No deformity, No edema, No calf tenderness / cord - Neuro Neuro: Alert and oriented X 3 - Psych Psych: Normal mood, Normal affect Results - Vitals Vitals: Vital Signs - 24 hr 07/22/20 07/22/20 07/22/20 18:19 18:26 19:04 Temperature Heart Rate 72 66 68 Respiratory 27 H 15 21 Rate Blood Pressure 161/99 H 163/86 H 162/87 H O2 Saturation 97 98 100 07/22/20 07/22/20 07/22/20 20:29 20:38 22:09 Temperature 36.1 C L Heart Rate 80 67 79 Respiratory 17 20 16 Rate Blood Pressure 161/86 H 182/97 H O2 Saturation 97 96 Oxygen O2 Source Room air - EKG (time done) Rate: Rate (enter#) (normal) Rhythm: NSR [place]: Normal Intervals: Normal [place] QRS: Normal Ischemia: Normal ST segments Compare to prior EKG: Old EKG unavailable Computer interpretation: Agree with computer - Labs Labs: Laboratory Tests 07/22/20 07/22/20 07/22/20 19:45 19:45 19:45 WBC 8.7 RBC 4.00 L Hgb 12.5 Hct 37.5 MCV 93.8 MCH 31.3 H MCHC 33.3 RDW 12.8 Plt Count 315 MPV 8.9 Neut # (Auto) 4.2 Lymph # (Auto) 2.9 [place] # (Auto) 0.8 Eos # (Auto) 0.7 Baso # (Auto) 0.1 Absolute Nucleated RBC 0.00 Nucleated RBC % 0.0 Sodium 139 Potassium 3.6 Chloride 104 Carbon Dioxide 24 Anion Gap 11.0 BUN 11 Creatinine 0.7 Estimated GFR (MDRD) 84 L Glucose 106 H Calcium 8.2 L Total Bilirubin 0.4 AST 17 ALT 13 Alkaline Phosphatase 58 Troponin I High Sens 6.3 Total Protein 5.9 L Albumin 3.7 Globulin 2.2 Albumin/Globulin Ratio 1.7 Lipase 30 07/22/20 20:43 WBC RBC Hgb Hct MCV MCH MCHC RDW Plt Count MPV Neut # (Auto) Lymph # (Auto) [place] # (Auto) Eos # (Auto) Baso # (Auto) Absolute Nucleated RBC Nucleated RBC % Sodium Potassium Chloride Carbon Dioxide Anion Gap BUN Creatinine Estimated GFR (MDRD) Glucose Calcium Total Bilirubin AST ALT Alkaline Phosphatase Troponin I High Sens 6.6 Total Protein Albumin Globulin Albumin/Globulin Ratio Lipase - Rads (name of study) cxr Radiology: Final report received, EMP read indepedently, See rad report PD MEDICAL DECISION MAKING - ED course Complexity details: reviewed old records, reviewed results, re-evaluated patient, considered differential, d/w patient ED course: The pt was worked up with labs, EKG, and CXR, all of which, including 2 troponins, were unremarkable. She was treated symptomatically at her request, and was found to be feeling better, ambulating to the bathroom without difficulty. I d/w pt that while there is no evidence of an LA today, and her sx are somewhat atypical of cardiac CP, it is very important that she follows up with her PCP as soon as possible to discuss having a stress test done. Pt also states she is in the process of GI referral for her ongoing GERD sx, nausea, and abdominal pain. We have discussed the usual indications for return. Departure - Departure Disposition: 01 Home, Self Care Clinical Impression: Chest pain Qualifiers: Chest pain type: unspecified Qualified Code(s): R07.9 - Chest pain, unspecified Condition: Stable Instructions: ED Chest Pain Atypical Unkn Cause Comments: Your labs, including 2 sets of cardiac enzymes, EKG, and chest x-ray all look good. There is no evidence of a heart attack or other serious condition at this time. However, it is important that you follow-up with your primary care physician to discuss whether a stress test should be done to look for blockages in your coronary arteries, the arteries which feed your heart muscle. If present, these blockages would put you at significant risk for heart attack in the future, and should be addressed. Please call your primary doctor's office tomorrow to set up an appointment for follow-up. Please also continue your plans to follow-up with gastroenterology regarding your acid reflux and other abdominal issues. Discharge Date/Time: 07/22/20 22:12
[2020-07-22 22:09] VITALS: BP 182/97
== END 2020-07-22 22:12 | disposition home or self-care (01) ==
LOC: EDUNIT# → ED 18:17
DX: R07.9 Chest pain, unspecified (principal); J44.9 Chronic obstructive pulmonary disease, unspecified; K21.9 Gastro-esophageal reflux disease without esophagitis; Z87.891 Personal history of nicotine dependence; I10 Essential (primary) hypertension
CPT/HCPCS: 36415; 71045; 80053; 83690; 84484; 85025; 93005; 94640; 96374; 99284; 99285; J1170

== ENCOUNTER 2021-05-15 12:42 | Outpatient (CLI) | payer MEDICARE | END 2021-05-15 12:43 | disposition home or self-care (01) | LOC: COV 12:42 | PROVIDERS: ATTEND Family Medicine | DX: Z01.812 Encounter for preprocedural laboratory examination (principal); Z20.822 Contact with and (suspected) exposure to COVID-19 ==

== ENCOUNTER 2021-06-02 10:20 | Outpatient (CLI) | payer MEDICARE | END 2021-06-02 23:59 | disposition home or self-care (01) | LOC: COV 10:20 | PROVIDERS: ATTEND Internal Medicine Pulmonary Disease | DX: Z01.812 Encounter for preprocedural laboratory examination (principal); J44.1 Chronic obstructive pulmonary disease with (acute) exacerbation; Z20.822 Contact with and (suspected) exposure to COVID-19 ==

== ENCOUNTER 2021-06-26 23:22 | Emergency (ER) | payer MEDICARE ==
--- NOTE | 2021-06-27 00:49 | ED Physician Documentation ---
PD HPI LOWER EXT INJURY - Stated complaint Stated Complaint: HIP PX - Chief complaint Chief Complaint: Ext Problem - History obtained from History obtained from: Patient, Family (spouse) - History of Present Illness PD HPI LOW EXT INJURY LOCATION: Left, Hip, Other (back) Type of injury: Fall Where injury occurred: Home Timing - onset: How many days ago (2) Timing - details: Abrupt onset Improved by: Rest Worsened by: Moving, Palpating Associated symptoms: No: Weakness, Numbness, Tingling, Swelling Contributing factors: No: Anticoagulated Similar symptoms before: Diagnosis (chronic pain) - Additional information Additional information: slipped and fell on porch 2 days ago. c/o left hip and lower back pain. spouse also perceives that patient has been slower to answer questions and converse since falling, although no apparent head injury Review of Systems Eyes: reports: Reviewed and negative Cardiac: reports: Reviewed and negative Respiratory: reports: Reviewed and negative GI: reports: Reviewed and negative : denies: Incontinent Skin: reports: Reviewed and negative Musculoskeletal: reports: Back pain, Joint pain (left hip). 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 - Present Medications Home Medications: Ambulatory Orders Medication Instructions Recorded Confirmed Albuterol Sulfate 0.63 mg IH DAILY 06/10/13 07/22/20 Hydrocodone/Acetaminophen [Vicodin 1 each PO Q6-8H PRN #15 tablet 06/10/13 07/22/20 Es 7.5-300 mg Tablet] Ipratropium/Albuterol Inhaler 2 puffs INH QID PRN 06/10/13 07/22/20 [Combivent Inhaler] Levothyroxine [Synthroid] 100 mcg PO QDAC 06/10/13 07/22/20 SUMAtriptan [Imitrex] 100 mg PO ONCE PRN 06/10/13 07/22/20 levoFLOXacin [Levofloxacin] 750 mg PO DAILY #10 tablet 06/10/13 07/22/20 HYDROmorphone [Dilaudid] 2 mg PO Q6H #10 tablet 09/02/17 07/22/20 - Allergies Allergies/Adverse Reactions: Allergies Allergy/AdvReac Type Severity Reaction Status Date / Time codeine [Codeine] Allergy tacycardia Verified 06/26/21 23:34 erythromycin base Allergy Hives Verified 06/26/21 23:34 [Erythromycin Base] ibuprofen [From Motrin] Allergy unknown Verified 06/26/21 23:34 ketorolac tromethamine * AdvReac Intermediate Dizziness Verified 06/26/21 23:34 [From Toradol] - Social History Does the pt smoke?: No Smoking Status: Never smoker Does the pt drink ETOH?: No Does the pt have substance abuse?: No - Immunizations Immunizations are current?: Yes - POLST Patient has POLST: No PD ED PE NORMAL - Vitals Vital signs reviewed: Yes - General General: Alert and oriented X 3, No acute distress, Well developed/nourished - HEENT HEENT: Atraumatic, PERRL, EOMI, Moist mucous membranes - Neck Neck: Supple, no meningeal sign - Cardiac Cardiac: RRR, No murmur - Respiratory Respiratory: No respiratory distress, Clear bilaterally - Abdomen Abdomen: Soft, Non tender - Back Back: Other (lumbar and paralumbar TTP, left posterior bony pelvis TTP) - Extremities Extremities: No deformity, No tenderness to palpate, Normal ROM s pain, No edema - Neuro Neuro: Alert and oriented X 3, research associate quality control qc 2-12 intact, No motor deficit, No sensory deficit, Normal speech Results - Vitals Vitals: Oxygen O2 Source Room air - Rads (name of study) lumbar xrays Radiology: Prelim report reviewed, See rad report pelvis xrays Radiology: Prelim report reviewed, See rad report PD MEDICAL DECISION MAKING - ED course Complexity details: reviewed results, re-evaluated patient, considered differential, d/w patient ED course: no evidence of acute injury nor concerning acute findings on CTH Departure - Departure Disposition: 01 Home, Self Care Clinical Impression: Fall, Lumbar sprain Condition: Good Instructions: ED Sprain Strain Lumbar, ED Fall Uncertain Cause Discharge Date/Time: 06/27/21 02:41
--- NOTE | 2021-06-27 02:05 | CT Report ---
PROCEDURE: HEAD WO INDICATIONS: fall, AMS per family TECHNIQUE: Noncontrast 4.5 mm thick angled axial sections acquired from the foramen magnum to the vertex. For r adiation dose reduction, the following was used: automated exposure control, adjustment of mA and/or kV according to patient size. COMPARISON: CT head 05/23/2019. FINDINGS: Image quality: Excellent. CSF spaces: Basal cisterns are patent. No extra-axial fluid collections. Ventricles are normal in size and shape. Brain: No midline shift. No intracranial masses or hemorrhage. Hypodensities in the subcortical and periventricular white matter most commonly encountered in the setting of small vessel ischemic rivera es Skull and face: Calvarium and visualized facial bones are intact, without suspicious lesions. Sinuses: Visualized sinuses and mastoids are clear. IMPRESSION: No acute intracranial abnormality. Reviewed by: Edis Hidalgo MD on 06/27/2021 2:03 AM PST Approved by: Edis Hidalgo MD on 06/27/2021 2:03 AM PST Station ID: [id number]
--- NOTE | 2021-06-27 02:07 | XRAY Report ---
PROCEDURE: Lumbar Spine 2 View INDICATIONS: fall, low back pain TECHNIQUE: 2 views of the lumbar spine were acquired. COMPARISON: None. FINDINGS: Bones: 5 [id number]-mordexf vertebrae are present. There is normal bony alignment. No vertebral body compression fractures. No suspicious bony lesions. Multilevel mild disc space narrowing and degener ative endplate changes are seen. There is prominent facet hypertrophy from L2-3 through L5-S1. Soft tissues: Overlying bowel gas pattern is normal. No suspicious soft tissue calcifications. Righ t upper quadrant cholecystectomy clips are seen. Aortic atherosclerotic calcifications are noted. IMPRESSION: No acute osseous abnormality. Multilevel degenerative changes with prominent facet hyper trophy. If symptoms persist within is continued clinical concern, further evaluation may be obtained with CT or MRI. Reviewed by: Edis Hidalgo MD on 06/27/2021 2:05 AM PST Approved by: Edis Hidalgo MD on 06/27/2021 2:05 AM PST Station ID: [id number]
--- NOTE | 2021-06-27 02:09 | XRAY Report ---
PROCEDURE: Pelvis 3 View INDICATIONS: fall, bony pelvis pain TECHNIQUE: 5 views of the pelvis acquired. COMPARISON: Pelvis radiographs 05/23/2019. FINDINGS: Bones: No fractures or dislocations. Mild degenerative changes are seen in the hips, pubic symphysi s, and sacroiliac joints. Degenerative changes also seen in the lower lumbar spine. Stable sclerotic focus projecting over the left greater trochanter is most likely a benign bone island. Soft tissues: Visualized bowel gas pattern is normal. No suspicious soft tissue calcifications. IMPRESSION: No acute osseous abnormality. If there is clinical concern or persistent symptoms, addit ional imaging such as repeat radiographs or advanced imaging (e.g. CT, MRI) may be helpful for furthe r evaluation. Reviewed by: Edis Hidalgo MD on 06/27/2021 2:08 AM PST Approved by: Edis Hidalgo MD on 06/27/2021 2:08 AM [facility] Station ID: [id number]
[2021-06-27 02:41] VITALS: BP 134/96
== END 2021-06-27 02:41 | disposition home or self-care (01) ==
LOC: ED 23:22
DX: S33.5XXA Sprain of ligaments of lumbar spine, initial encounter (principal); W19.XXXA Unspecified fall, initial encounter; Y92.008 Other place in unspecified non-institutional (private) residence as the place of occurrence of the external cause
CPT/HCPCS: 99282; 99284

== ENCOUNTER 2021-09-04 23:57 | Outpatient (CLI) | payer MEDICARE | END 2021-09-04 23:58 | disposition EMS.NT | LOC: EMS 23:57 | DX: R10.9 Unspecified abdominal pain (principal); R07.81 Pleurodynia ==

== ENCOUNTER 2022-05-26 23:11 | Outpatient (CLI) | payer MEDICARE | END 2022-05-26 23:12 | disposition critical access hospital (66) | LOC: EMS 23:11 | DX: R55 Syncope and collapse (principal) | CPT/HCPCS: A0425; A0427 ==

== ENCOUNTER 2022-05-26 23:44 | Emergency (ER) | payer MEDICARE ==
[2022-05-27] MEDS ORDERED: SODIUM CHLORIDE 0.9% 1,000 ML IV STA (00:07)
[2022-05-27 00:33] LABS: BASOPHILS # (AUTO) 0.1 10^3/uL (0.0-0.1); BASOPHILS % (AUTO) 1.1 %; EOSINOPHILS # (AUTO) 0.7 10^3/uL (0.0-0.7); EOSINOPHILS % (AUTO) 12.1 %; HCT - HEMATOCRIT 36.2 % (37.0-47.0); LYMPHOCYTES # (AUTO) 1.4 10^3/uL (1.5-3.5); LYMPHOCYTES % (AUTO) 24.8 %; MEAN CORPUSCULAR HEMOGLOBIN 30.3 pg (27.0-31.0); MEAN CORPUSCULAR HGB CONC 33.1 g/dL (32.0-36.0); MEAN CORPUSCULAR VOLUME 91.4 fL (81.0-99.0); MEAN PLATELET VOLUME 8.9 fL (7.9-10.8); MONOCYTES # (AUTO) 0.8 10^3/uL (0.0-1.0); MONOCYTES % (AUTO) 13.9 %; NEUTROPHILS # (AUTO) 2.6 10^3/uL (1.5-6.6); NEUTROPHILS % (AUTO) 47.9 %; PLT - PLATELET COUNT 227 10^3/uL (130-450); RED BLOOD COUNT 3.96 10^6/uL (4.20-5.40); RED CELL DISTRIBUTION WIDTH 13.2 % (12.0-15.0); WHITE BLOOD COUNT 5.5 x10^3/uL (4.8-10.8)
[2022-05-27 00:51] LABS: ALBUMIN 3.4 g/dL (3.2-5.5); ALBUMIN/GLOBULIN RATIO 1.7 (1.0-2.2); BILIRUBIN,TOTAL 0.3 mg/dL (0.2-1.0); CALCIUM 8.1 mg/dL (8.5-10.3); CREATININE 0.8 mg/dL (0.4-1.0); POTASSIUM 3.8 mmol/L (3.5-5.0); TOTAL PROTEIN 5.4 g/dL (6.7-8.2)
--- NOTE | 2022-05-27 00:55 | ED Physician Documentation ---
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 HPI is from EMS, as patient does not recall event. Per EMS report, patients called 911 due to patient having syncope upon standing up from the toilet. EMS noted SBP in 70s , improved to 90s-100s by the time she arrives to ED. She was given 800cc NS bolus en route. FSBS 117. On my HPI, patient does not recall the event and is asymptomatic. Review of Systems Constitutional: reports: Reviewed and negative Cardiac: reports: Reviewed and negative Respiratory: reports: Reviewed and negative GI: reports: Reviewed and negative Musculoskeletal: reports: Reviewed and negative Neurologic: reports: Syncope. 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 /MANAGER QA: section, 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 - Present Medications Home Medications: Ambulatory Orders Medication Instructions Recorded Confirmed Albuterol Sulfate 0.63 mg IH DAILY 06/10/13 07/22/20 Ipratropium/Albuterol Inhaler 2 puffs INH QID PRN 06/10/13 05/27/22 [Combivent Inhaler] SUMAtriptan [Imitrex] 100 mg PO ONCE PRN 06/10/13 05/27/22 HYDROmorphone [Dilaudid] 2 mg PO Q6H #10 tablet 09/02/17 05/27/22 Amitriptyline [Elavil] 25 mg PO QPM 05/27/22 05/27/22 Dicyclomine [Bentyl] 10 mg PO Q4HR PRN 05/27/22 05/27/22 Hydromorphone HCl 2 mg PO QID 05/27/22 05/27/22 Hyoscyamine [Levsin] 1 tab PO Q6HR PRN 05/27/22 05/27/22 Levothyroxine Sodium 1 cap PO DAILY 05/27/22 05/27/22 [Levothyroxine] Metoprolol Succinate 100 mg PO BID 05/27/22 05/27/22 Mirtazapine 15 mg PO QPM 05/27/22 05/27/22 ONDANSETRON ODT Prepack 2 [ZOFRAN 4 mg PO Q8HR PRN 05/27/22 05/27/22 ODT] lisinopriL [Zestril] 5 mg PO DAILY 05/27/22 05/27/22 - Allergies Allergies/Adverse Reactions: Allergies Allergy/AdvReac Type Severity Reaction Status Date / Time codeine [Codeine] Allergy tacycardia Verified 05/27/22 00:02 erythromycin base Allergy Hives Verified 05/27/22 00:02 [Erythromycin Base] ibuprofen [From Motrin] Allergy unknown Verified 05/27/22 00:02 ketorolac tromethamine * AdvReac Intermediate Dizziness Verified 05/27/22 00:02 [From Toradol] - Social History Does the pt smoke?: No Smoking Status: Never smoker Does the pt drink ETOH?: No Does the pt have substance abuse?: No - Immunizations Immunizations are current?: Yes - POLST Patient has POLST: No PD ED PE NORMAL - Vitals Vital signs reviewed: Yes - General General: Alert and oriented X 3 (drowsy but awakens to voice), No acute distress, Well developed/nourished, Other (slow to answer some questions, seems unsure of some answers) - HEENT HEENT: Atraumatic, PERRL, EOMI, Moist mucous membranes - Neck Neck: Supple, no meningeal sign - Cardiac Cardiac: RRR - Respiratory Respiratory: No respiratory distress, Clear bilaterally - Abdomen Abdomen: Soft, Non tender - Derm Derm: Normal color, Warm and dry - Extremities Extremities: No deformity, No tenderness to palpate, Normal ROM s pain - Neuro Neuro: Alert and oriented X 3, radio director 2-12 intact, No motor deficit, No sensory deficit, Normal speech Results - Vitals Vitals: Oxygen O2 Source Room air - EKG (time done) No standard instances Rate: Rate (enter#) (67) Rhythm: NSR [place]: Normal Intervals: Normal [place] QRS: Normal Ischemia: Normal ST segments, Non specific changes (flat/inverted T waves V3-V6) - Labs Labs: Laboratory Tests 05/27/22 05/27/22 05/27/22 00:16 00:16 00:16 WBC 5.5 RBC 3.96 L Hgb 12.0 Hct 36.2 L MCV 91.4 MCH 30.3 MCHC 33.1 RDW 13.2 Plt Count 227 MPV 8.9 Neut # (Auto) 2.6 Lymph # (Auto) 1.4 L [place] # (Auto) 0.8 Eos # (Auto) 0.7 Baso # (Auto) 0.1 Absolute Nucleated RBC 0.00 Nucleated RBC % 0.0 Sodium 136 Potassium 3.8 Chloride 104 Carbon Dioxide 25 Anion Gap 7.0 BUN 12 Creatinine 0.8 Estimated GFR (MDRD) 72 L Glucose 119 H Calcium 8.1 L Total Bilirubin 0.3 AST 15 ALT 12 Alkaline Phosphatase 58 Troponin I High Sens 5.1 Total Protein 5.4 L Albumin 3.4 Globulin 2.0 L Albumin/Globulin Ratio 1.7 Lipase 30 - Rads (name of study) CTH Radiology: Prelim report reviewed, See rad report CT cervical spine Radiology: Prelim report reviewed, See rad report PD MEDICAL DECISION MAKING - ED course Complexity details: reviewed results, re-evaluated patient, considered differential, d/w patient Departure - Departure Disposition: 01 Home, Self Care Clinical Impression: Syncope Qualifiers: Syncope type: unspecified Qualified Code(s): R55 - Syncope and collapse Condition: Good Instructions: ED Fainting Unkn Cause Follow-Up: SHERMAN SANTACRUZ MD [Primary Care Provider] - Comments: There are no concerning findings on tonight's tests; the cause of your symptoms is not apparent at this time. Please follow up with your primary care provider within one week for reevaluation Discharge Date/Time: 05/27/22 07:20
[2022-05-27 07:15] VITALS: BP 110/69
--- NOTE | 2022-05-27 08:39 | CT Report ---
PROCEDURE: CERVICAL SPINE WO INDICATIONS: AMS, syncope, reported fall TECHNIQUE: Noncontrast 3 mm thick sections acquired from the skull base to the T4 level. Sagittal and coronal r eformats were then constructed. For radiation dose reduction, the following was used: automated exp osure control, adjustment of mA and/or kV according to patient size. COMPARISON: None. FINDINGS: Approximately 3 mm anterolisthesis of C4 on C5. Approximately 2 mm retrolisthesis of C5 on C6. These are both likely degenerative. No evidence of traumatic listhesis. Degenerative straightening of the u sual cervical lordosis. No abnormal or asymmetric widening of the facets. No fracture, dislocation, o r subluxation identified. No acute finding of the prevertebral paraspinous soft tissues. IMPRESSION: No CT evidence of acute traumatic cervical spine injury. No significant change from preliminary repor t. Reviewed by: Juan David Vial MD on 05/27/2022 8:38 AM PDT Approved by: Juan David Vail MD on 05/27/2022 8:38 AM PDT Station ID: [id number]
--- NOTE | 2022-05-27 08:42 | CT Report ---
PROCEDURE: HEAD WO INDICATIONS: AMS, syncope TECHNIQUE: Noncontrast 4.5 mm thick angled axial sections acquired from the foramen magnum to the vertex. For r adiation dose reduction, the following was used: automated exposure control, adjustment of mA and/or kV according to patient size. COMPARISON: None. FINDINGS: Image quality: Excellent. CSF spaces: Basal cisterns are patent. No extra-axial fluid collections. Ventricles are normal in size and shape. Brain: Diffuse global cerebral volume loss with chronic microvascular ischemic changes, both advance d for patient age and overall moderate. No mass effect or midline shift. No acute intracranial hemorr mean. Skull and face: Calvarium and visualized facial bones are intact, without suspicious lesions. Sinuses: Visualized sinuses and mastoids are clear. IMPRESSION: No acute intracranial finding. Reviewed by: Juan David Vail MD on 05/27/2022 8:41 AM PDT Approved by: Juan David Vail MD on 05/27/2022 8:41 AM PDT Station ID: [id number]
== END 2022-05-27 07:20 | disposition home or self-care (01) ==
LOC: EDUNIT# → ED 23:44
DX: R55 Syncope and collapse (principal); I10 Essential (primary) hypertension
CPT/HCPCS: 36415; 80053; 83690; 84484; 85025; 93005; 99284

== ENCOUNTER 2022-08-04 09:16 | Outpatient (CLI) | payer MEDICARE | END 2022-08-04 09:17 | disposition EMS.NT | LOC: EMS 09:16 | DX: R06.02 Shortness of breath (principal) ==

== ENCOUNTER 2022-08-04 15:20 | Outpatient (CLI) | payer MEDICARE | END 2022-08-04 15:21 | disposition short-term general hospital (02) | LOC: EMS 15:20 | DX: R06.00 Dyspnea, unspecified (principal) | CPT/HCPCS: A0425; A0427 ==

== ENCOUNTER 2023-02-23 | Outpatient (CLI) | payer MEDICARE | END 2023-02-23 23:59 | disposition critical access hospital (66) | LOC: EMS | DX: R47.81 Slurred speech (principal); R53.1 Weakness; R11.0 Nausea; R53.83 Other fatigue; R26.81 Unsteadiness on feet | CPT/HCPCS: A0425; A0427 ==

== ENCOUNTER 2023-02-23 01:26 | Emergency (ER) | payer MEDICARE ==
[2023-02-23] MEDS ORDERED: SODIUM CHLORIDE 0.9% 1,000 ML IV STA (01:45)
[2023-02-23 01:50] LABS: BASOPHILS # (AUTO) 0.1 10^3/uL (0.0-0.1); BASOPHILS % (AUTO) 1.1 %; EOSINOPHILS # (AUTO) 0.8 10^3/uL (0.0-0.7); EOSINOPHILS % (AUTO) 10.1 %; HCT - HEMATOCRIT 38.6 % (37.0-47.0); HGB - HEMOGLOBIN 12.7 g/dL (12.0-16.0); MEAN CORPUSCULAR HEMOGLOBIN 30.2 pg (27.0-31.0); MEAN CORPUSCULAR HGB CONC 32.9 g/dL (32.0-36.0); MEAN CORPUSCULAR VOLUME 91.7 fL (81.0-99.0); MEAN PLATELET VOLUME 8.6 fL (7.9-10.8); MONOCYTES # (AUTO) 0.8 10^3/uL (0.0-1.0); MONOCYTES % (AUTO) 10.1 %; NEUTROPHILS # (AUTO) 4.2 10^3/uL (1.5-6.6); NEUTROPHILS % (AUTO) 53.4 %; PLT - PLATELET COUNT 318 10^3/uL (130-450); RED BLOOD COUNT 4.21 10^6/uL (4.20-5.40); RED CELL DISTRIBUTION WIDTH 13.1 % (12.0-15.0); WHITE BLOOD COUNT 7.8 x10^3/uL (4.8-10.8)
[2023-02-23] MEDS ORDERED: iohexoL-300 100 ML VIAL ONE (01:56)
[2023-02-23 02:00] LABS: ALBUMIN 3.5 g/dL (3.2-5.5); ALBUMIN/GLOBULIN RATIO 1.3 (1.0-2.2); ALKALINE PHOSPHATASE 56 IU/L (42-121); ALT ALANINE AMINOTRANSFERASE 10 IU/L (10-60); AST ASPARTATE AMINOTRANSFERASE 15 IU/L (10-42); BILIRUBIN,TOTAL 0.3 mg/dL (0.2-1.0); BUN - BLOOD UREA NITROGEN 15 mg/dL (6-20); CALCIUM 8.9 mg/dL (8.5-10.3); CARBON DIOXIDE - CO2 29 mmol/L (21-32); CHLORIDE 101 mmol/L (101-111); CREATININE 0.9 mg/dL (0.6-1.3); ETOH - ETHANOL < 10.0 mg/dL; GFR - MDRD 62 (>89); GLUCOSE 132 mg/dL (74-104); LIPASE 22 U/L (11-82); POTASSIUM 3.9 mmol/L (3.5-4.5); SODIUM 134 mmol/L (135-145); TOTAL PROTEIN 6.1 g/dL (6.4-8.9)
[2023-02-23] MEDS ORDERED: iohexoL-300 100 ML VIAL IVP ONE (03:03)
[2023-02-23 03:31] LABS: MUDS CUTOFF CONCENTRATIONS CUTOFF CONC BELOW:
[2023-02-23 03:33] LABS: BILIRUBIN,URINE NEGATIVE (NEGATIVE); GLUCOSE, URINE (UA) NEGATIVE (NEGATIVE); KETONES,URINE (UA) NEGATIVE (NEGATIVE); LEUKOCYTE ESTERASE, URINE NEGATIVE (NEGATIVE); NITRITE,URINE NEGATIVE (NEGATIVE); OCCULT BLOOD,URINE NEGATIVE (NEGATIVE); PH,URINE 5.5 PH (5.0-7.5); PROTEIN,URINE NEGATIVE (NEGATIVE); UROBILINOGEN,URINE 0.2 (NORMAL) E.U./dL (NORMAL)
[2023-02-23 03:38] LABS: CLARITY,URINE CLEAR (CLEAR)
[2023-02-23 03:43] LABS: AMPHETAMINE SCREEN,URINE NEGATIVE (NEGATIVE); BARBITURATE SCREEN,UR NEGATIVE (NEGATIVE); BENZODIAZEPINES SCREEN, URINE NEGATIVE (NEGATIVE); COCAINE SCREEN URINE NEGATIVE (NEGATIVE); METHADONE SCREEN, URINE NEGATIVE (NEGATIVE); METHAMPHETAMINES SCREEN, URINE NEGATIVE (NEGATIVE); OPIATE SCREEN, URINE POSITIVE (NEGATIVE); OXYCODONE SCREEN, URINE NEGATIVE (NEGATIVE); PROPOXYPHENE SCREEN, URINE NEGATIVE (NEGATIVE); THC CANNABINOID SCREEN, URINE POSITIVE (NEGATIVE); TRICYCLIC ANTIDEPRESSANT,URINE POSITIVE (NEGATIVE)
[2023-02-23 03:47] VITALS: BP 102/75
--- NOTE | 2023-02-23 04:02 | ED Physician Documentation ---
History of Present Illness - Stated complaint Stated Complaint: AMS - Chief complaint Chief Complaint: Neuro - History obtained from History obtained from: Patient, Family, EMS - Additonal information Additional information: The patient is brought to the emergency department by EMS for chief complaint of altered mental status. Patient's states that the patient takes Dilaudid and edibles and that she had taken her usual regimen before bed around 2230 yesterday. He states that he was in bed with the patient a few hours later when he heard her making some moaning noises and looked over and saw that her face was contorted. Patient was grimacing and moaning and when he tried to wake her up, she seemed incoherent, but mumbled that she was having pain in her sides. When the medics picked the patient up, they did not find any focal deficits neurologically but stated that she continued to be mumbling and have unclear speech, so they were not sure if she was having a stroke or not. The patient states that she feels little more "off" than usual, but denies feeling sick in any other way. 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 - Present Medications Home Medications: Ambulatory Orders Medication Instructions Recorded Confirmed Albuterol Sulfate 0.63 mg IH DAILY 06/10/13 07/22/20 Ipratropium/Albuterol Inhaler 2 puffs INH QID PRN 06/10/13 05/27/22 [Combivent Inhaler] SUMAtriptan [Imitrex] 100 mg PO ONCE PRN 06/10/13 05/27/22 HYDROmorphone [Dilaudid] 2 mg PO Q6H #10 tablet 09/02/17 05/27/22 Amitriptyline [Elavil] 25 mg PO QPM 05/27/22 05/27/22 Dicyclomine [Bentyl] 10 mg PO Q4HR PRN 05/27/22 05/27/22 Hydromorphone HCl 2 mg PO QID 05/27/22 05/27/22 Hyoscyamine [Levsin] 1 tab PO Q6HR PRN 05/27/22 05/27/22 Levothyroxine Sodium 1 cap PO DAILY 05/27/22 05/27/22 [Levothyroxine] Metoprolol Succinate 100 mg PO BID 05/27/22 05/27/22 Mirtazapine 15 mg PO QPM 05/27/22 05/27/22 ONDANSETRON ODT Prepack 2 [ZOFRAN 4 mg PO Q8HR PRN 05/27/22 05/27/22 ODT] lisinopriL [Zestril] 5 mg PO DAILY 05/27/22 05/27/22 - Allergies Allergies/Adverse Reactions: Allergies Allergy/AdvReac Type Severity Reaction Status Date / Time codeine [Codeine] Allergy tacycardia Verified 05/27/22 00:02 erythromycin base Allergy Hives Verified 05/27/22 00:02 [Erythromycin Base] ibuprofen [From Motrin] Allergy unknown Verified 05/27/22 00:02 ketorolac tromethamine * AdvReac Intermediate Dizziness Verified 05/27/22 00:02 [From Toradol] - Social History Does the pt smoke?: No Smoking Status: Never smoker Does the pt drink ETOH?: No Does the pt have substance abuse?: No - Immunizations Immunizations are current?: Yes - POLST Patient has POLST: No PD ED PE NORMAL - Vitals Vital signs reviewed: Yes - General General: No acute distress, Well developed/nourished, Other (The patient is mildly drowsy but alert when aroused, And answers questions appropriately.) - HEENT HEENT: Atraumatic, PERRL, EOMI, Moist mucous membranes - Neck Neck: Supple, no meningeal sign - Cardiac Cardiac: RRR, No murmur, Strong equal pulses - Respiratory Respiratory: No respiratory distress, Clear bilaterally - Abdomen Abdomen: Soft, Non tender, Non distended - Derm Derm: Normal color, Warm and dry, No rash - Extremities Extremities: No deformity, No edema - Neuro Neuro: door framer 2-12 intact, No motor deficit, No sensory deficit, Normal speech, Other (Awake and answering questions appropriately, mildly drowsy. Otherwise no deficits.) - Psych Psych: Normal mood, Normal affect Results - Vitals Vitals: Vital Signs - 24 hr 02/23/23 02/23/23 01:28 03:40 Temperature 36.4 C L Heart Rate 102 H 78 Respiratory 16 16 Rate Blood Pressure 159/102 H 102/75 O2 Saturation 94 95 Oxygen O2 Source Room air - Labs Labs: Laboratory Tests 02/23/23 02/23/23 02/23/23 01:40 01:40 03:24 WBC 7.8 RBC 4.21 Hgb 12.7 Hct 38.6 MCV 91.7 MCH 30.2 MCHC 32.9 RDW 13.1 Plt Count 318 MPV 8.6 Neut # (Auto) 4.2 Lymph # (Auto) 2.0 [place] # (Auto) 0.8 Eos # (Auto) 0.8 H Baso # (Auto) 0.1 Absolute Nucleated RBC 0.00 Nucleated RBC % 0.0 Sodium 134 L Potassium 3.9 Chloride 101 Carbon Dioxide 29 Anion Gap 4.0 L BUN 15 Creatinine 0.9 Estimated GFR (MDRD) 62 L Glucose 132 H Calcium 8.9 Total Bilirubin 0.3 AST 15 ALT 10 Alkaline Phosphatase 56 Total Protein 6.1 L Albumin 3.5 Globulin 2.6 Albumin/Globulin Ratio 1.3 Lipase 22 Urine Color YELLOW Urine Clarity CLEAR Urine pH 5.5 Ur Specific [place] <=1.005 Urine Protein NEGATIVE Urine Glucose (UA) NEGATIVE Urine Ketones NEGATIVE Urine Occult Blood NEGATIVE Urine Nitrite NEGATIVE Urine Bilirubin NEGATIVE Urine Urobilinogen 0.2 (NORMAL) Ur Leukocyte Esterase NEGATIVE Ur Microscopic Review NOT INDICATED Urine Culture Comments NOT INDICATED Urine Opiates Screen POSITIVE H Ur Oxycodone Screen NEGATIVE Urine Methadone Screen NEGATIVE Ur Propoxyphene Screen NEGATIVE Ur Barbiturates Screen NEGATIVE Ur Tricyclics Screen POSITIVE H Ur Phencyclidine Scrn NEGATIVE Ur Amphetamine Screen NEGATIVE U Methamphetamines Scrn NEGATIVE U Benzodiazepines Scrn NEGATIVE Urine Cocaine Screen NEGATIVE U Cannabinoids Screen POSITIVE H Ethyl Alcohol < 10.0 - Rads (name of study) CT CTA head Relevant Findings:: Final report received, See rad report (No acute findings) CTA neck Relevant Findings:: Final report received, See rad report (Negative) PD Medical Decision Making - ED course Complexity details: reviewed results, re-evaluated patient, considered differential, d/w patient, d/w family ED course: The patient was treated with IV fluids and worked up extensively for her symptoms. Her imaging of the head was negative, and I did not feel that her symptoms represented a stroke in any way. Patient's laboratory studies were unremarkable for any finding great significance. I reevaluated the patient who was still somewhat drowsy but appropriate and I felt she was stable for discharge home. I discussed with her that she should not be taking her Dilaudid and edibles to close together, as she is at risk for oversedation for an extended period of time, which could be dangerous if the patient is at home in an unmonitored setting. The patient significant other expresses understanding. For now, the patient is able to be aroused easily and is appropriate for discharge. We discussed the usual indications for return. Departure - Departure Disposition: Home, Self Care Clinical Impression: Sedated due to multiple medications Altered mental status Qualifiers: Altered mental status type: delirium Qualified Code(s): R41.0 - Disorientation, unspecified Condition: Stable Instructions: ED Drug React Adverse Other Comments: The CT scans show some chronic changes but no evidence of an acute stroke. Laboratory studies were fairly unremarkable. Your urine drug screen did show that you not only took marijuana but also, opiates as well. If you are taking pain medications, either by prescription or recreationally, with marijuana on top of that, this can cause you to be confused and oversedated. It is important that you do not mix the sorts of medications without your doctor's express approval, As it can be dangerous to combine medications that are sedating. Please schedule follow-up appointment with your doctor to discuss your medications. Forms: PCP List Discharge Date/Time: 02/23/23 04:18
--- NOTE | 2023-02-23 08:23 | CT Report ---
PROCEDURE: ANGIO HEAD W/WO INDICATIONS: slurred speech CONTRAST: 80mL Omni 300 TECHNIQUE: Precontrast 4.5 mm thick angled axial sections acquired from the foramen magnum to the vertex. Afte r the administration of intravenous contrast, 1 mm thick sections acquired through the [place] is. Postcontrast 4.5 mm thick sections then re-acquired from the foramen magnum to the vertex. 3-di mensional [id number]-mdctxpvqhr (MIP) and/or volume rendering reformats were acquired of the c entral intracranial vasculature. For radiation dose reduction, the following was used: automated ex posure control, adjustment of mA and/or kV according to patient size. COMPARISON: CTA neck 02/23/2023, CT head 05/27/2022, 1 01/08/2017 FINDINGS: Image quality: Motion is present within portions of the exam, limiting areas of fine detail evaluatio n. Anterior circulation: Intracranial internal carotid arteries demonstrate mild stress stenosis with c alcification of the supraclinoid regions. The flow within the paired anterior cerebral arteries is no rmal and symmetric. The flow within the middle cerebral arteries is normal and symmetric. The anter ior communicating artery is seen. No aneurysms are seen. Posterior circulation: There is a slight right vertebral artery dominance. Visualized portions of th e vertebral arteries demonstrate normal caliber, and join to form a normal appearing basilar artery. Flow within the posterior cerebral arteries is normal and symmetric. No aneurysms are seen. The ventricular system and cortical sulci demonstrate atrophy, consistent for patient's stated age. There are areas of hypodensity in the periventricular and subcortical white matter. There is no acut e intra or extra-axial fluid collection. No acute hemorrhage, mass lesion or midline shift. Brainst em is unremarkable. Globes are symmetrical. Sinuses are aerated. Osseous structures are intact. IMPRESSION: 1. No acute intracranial process. 2. Moderate atrophy and chronic microvascular ischemic changes. 3. No areas of hemodynamically significant stenosis, vascular occlusion or aneurysmal dilation within the posterior circulation. 4. Mild supraclinoid internal carotid artery stenosis bilaterally. The above findings are concordant with preliminary report. The above findings are concordant with preliminary report. Reviewed by: Maryjo Pfeiffer MD on 02/23/2023 8:21 AM PDT Approved by: Maryjo Pfeiffer MD on 02/23/2023 8:21 AM PDT Station ID: [id number]
--- NOTE | 2023-02-23 08:25 | CT Report ---
PROCEDURE: ANGIO NECK W INDICATIONS: slurred speech CONTRAST: 80mL Omni 300 TECHNIQUE: After the administration of intravenous contrast, 1.5 mm axial sections acquired from the aortic arch to the [place]. Coronal 3-D maximum intensity projection (MIP) and/or volume rendering ref ormats were then performed. For radiation dose reduction, the following was used: automated exposur e control, adjustment of mA and/or kV according to patient size. COMPARISON: CTA head 02/23/2023, CT head 08/27/2021 FINDINGS: Image quality: Excellent. Carotid system: The great vessels demonstrate a conventional anatomy as they arise from the aortic a rch. The origins of the common carotid arteries appear patent. The common carotid arteries demonstr ate normal calibers and courses. The bifurcation regions appear normal bilaterally. There is calcifi cation at the origin of the right internal carotid artery with stenosis approximately 30%. Calcificat ion is present at the distal common carotid artery on the right without hemodynamically significant s tenosis. Posterior circulation: Slight right vertebral artery dominance. The origins of the vertebral arterie s appear patent. The more superior portions of the vertebral arteries demonstrate normal course and caliber. They join to form a normal appearing basilar artery. Soft tissues: Visualized neck soft tissues demonstrate no suspicious abnormalities. The thyroid is normal in size and there are no incidental findings. Bones: No suspicious bony lesions. Visualized cervical spine appears normally aligned. IMPRESSION: Approximately 30% stenosis with calcification of the proximal left internal carotid artery. The above findings are concordant with preliminary report. The estimate of stenosis included in the report of the imaging study was calculated using the NASCET method CLINICAL RECOMMENDATION STATEMENTS: In patients <35 years with an ITN detected on CT, MRI, or extrathyroidal ultrasound, the Committee re commends further evaluation with dedicated thyroid ultrasound if the nodule is "e1 cm and has no susp icious imaging features, and if the patient has normal life expectancy. In patients "e35 years with an ITN detected on CT, MRI, or extrathyroidal ultrasound, the Committee r ecommends further evaluation with dedicated thyroid ultrasound if the nodule is "e1.5 cm and has no s uspicious imaging features, and if the patient has normal life expectancy. (ACR, 2014) Reviewed by: Maryjo Pfeiffer MD on 02/23/2023 8:24 AM PDT Approved by: Maryjo Pfeiffer MD on 02/23/2023 8:24 AM PDT Station ID: [id number]
== END 2023-02-23 04:18 | disposition home or self-care (01) ==
LOC: EDUNIT# → ED 01:26
DX: R41.82 Altered mental status, unspecified (principal)
CPT/HCPCS: 36415; 70496; 70498; 80053; 80306; 81003; 83690; 85025; 96360; 99283; 99284; G0480; Q9967; 80320; 81001; 87086

== ENCOUNTER 2023-03-13 23:21 | Outpatient (CLI) | payer MEDICARE | END 2023-03-13 23:59 | disposition critical access hospital (66) | LOC: EMS 23:21 | DX: R10.84 Generalized abdominal pain (principal); I10 Essential (primary) hypertension | CPT/HCPCS: A0425; A0429 ==

== ENCOUNTER 2023-03-14 00:02 | Emergency (ER) | payer MEDICARE ==
[2023-03-14 00:17] VITALS: O2SAT 98
[2023-03-14] MEDS ORDERED: SODIUM CHLORIDE 0.9% 1,000 ML IV STA (00:20)
[2023-03-14 00:48] LABS: BASOPHILS # (AUTO) 0.1 10^3/uL (0.0-0.1); BASOPHILS % (AUTO) 1.2 %; EOSINOPHILS # (AUTO) 0.6 10^3/uL (0.0-0.7); EOSINOPHILS % (AUTO) 6.5 %; HCT - HEMATOCRIT 41.8 % (37.0-47.0); HGB - HEMOGLOBIN 13.9 g/dL (12.0-16.0); LYMPHOCYTES # (AUTO) 3.5 10^3/uL (1.5-3.5); LYMPHOCYTES % (AUTO) 36.8 %; MEAN CORPUSCULAR HEMOGLOBIN 30.2 pg (27.0-31.0); MEAN CORPUSCULAR HGB CONC 33.3 g/dL (32.0-36.0); MEAN CORPUSCULAR VOLUME 90.9 fL (81.0-99.0); MEAN PLATELET VOLUME 8.9 fL (7.9-10.8); MONOCYTES # (AUTO) 0.9 10^3/uL (0.0-1.0); MONOCYTES % (AUTO) 9.2 %; NEUTROPHILS # (AUTO) 4.4 10^3/uL (1.5-6.6); NEUTROPHILS % (AUTO) 46.1 %; PLT - PLATELET COUNT 303 10^3/uL (130-450); RED CELL DISTRIBUTION WIDTH 13.2 % (12.0-15.0); WHITE BLOOD COUNT 9.5 x10^3/uL (4.8-10.8)
[2023-03-14] MEDS ORDERED: HYDROmorphone 0.5 MG/0.5 ML SYRINGE IM STA (01:04)
[2023-03-14] MEDS ORDERED: LIDOCAINE VISCOUS 2% 15 ML ORAL SYRINGE MM STA (01:04)
[2023-03-14] MEDS ORDERED: DROPERIDOL 5 MG/2 ML VIAL IM STA (01:04)
[2023-03-14] MEDS ORDERED: MAG HYDROX/AL HYDROX/SIMETH 30 ML UDC PO STA (01:04)
[2023-03-14 01:15] LABS: ALBUMIN 3.9 g/dL (3.2-5.5); ALBUMIN/GLOBULIN RATIO 1.3 (1.0-2.2); BILIRUBIN,TOTAL 0.4 mg/dL (0.2-1.0); CALCIUM 9.4 mg/dL (8.5-10.3); CREATININE 0.8 mg/dL (0.6-1.3); POTASSIUM 3.6 mmol/L (3.5-4.5); TOTAL PROTEIN 6.8 g/dL (6.4-8.9)
--- NOTE | 2023-03-14 01:34 | ED Physician Documentation ---
History of Present Illness - Stated complaint Stated Complaint: ABD PX - Chief complaint Chief Complaint: Abd Pain - History obtained from History obtained from: Patient, Family - Additonal information Additional information: The pt comes to the ED with CC of upper abd pain and nausea today. The pt has a h/o recurrent episodes of this, and sees GI. No fevers or chills. No urinary sx. No diarrhea or constipation that is new or worse. No new meds. The pt denies any other complaints at this time. 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 - Present Medications Home Medications: Ambulatory Orders Medication Instructions Recorded Confirmed Albuterol Sulfate 0.63 mg IH DAILY 06/10/13 07/22/20 Ipratropium/Albuterol Inhaler 2 puffs INH QID PRN 06/10/13 05/27/22 [Combivent Inhaler] SUMAtriptan [Imitrex] 100 mg PO ONCE PRN 06/10/13 05/27/22 HYDROmorphone [Dilaudid] 2 mg PO Q6H #10 tablet 09/02/17 05/27/22 Amitriptyline [Elavil] 25 mg PO QPM 05/27/22 05/27/22 Dicyclomine [Bentyl] 10 mg PO Q4HR PRN 05/27/22 05/27/22 Hydromorphone HCl 2 mg PO QID 05/27/22 05/27/22 Hyoscyamine [Levsin] 1 tab PO Q6HR PRN 05/27/22 05/27/22 Levothyroxine Sodium 1 cap PO DAILY 05/27/22 05/27/22 [Levothyroxine] Metoprolol Succinate 100 mg PO BID 05/27/22 05/27/22 Mirtazapine 15 mg PO QPM 05/27/22 05/27/22 ONDANSETRON ODT Prepack 2 [ZOFRAN 4 mg PO Q8HR PRN 05/27/22 05/27/22 ODT] lisinopriL [Zestril] 5 mg PO DAILY 05/27/22 05/27/22 - Allergies Allergies/Adverse Reactions: Allergies Allergy/AdvReac Type Severity Reaction Status Date / Time codeine [Codeine] Allergy tacycardia Verified 03/14/23 00:16 erythromycin base Allergy Hives Verified 03/14/23 00:16 [Erythromycin Base] ibuprofen [From Motrin] Allergy unknown Verified 03/14/23 00:16 ketorolac tromethamine * AdvReac Intermediate Dizziness Verified 03/14/23 00:16 [From Toradol] - Social History Does the pt smoke?: No Smoking Status: Never smoker Does the pt drink ETOH?: No Does the pt have substance abuse?: No - Immunizations Immunizations are current?: Yes - POLST Patient has POLST: No PD ED PE NORMAL - Vitals Vital signs reviewed: Yes - General General: Alert and oriented X 3, No acute distress, Well developed/nourished - HEENT HEENT: Atraumatic, PERRL, EOMI, Moist mucous membranes - Neck Neck: Supple, no meningeal sign - Cardiac Cardiac: RRR, No murmur - Respiratory Respiratory: No respiratory distress, Clear bilaterally - Abdomen Abdomen: Soft, Non distended, Other (Moderate tenderness, epigastrium and LUQ) - Derm Derm: Warm and dry - Extremities Extremities: No deformity - Neuro Neuro: Alert and oriented X 3, speeder tender 2-12 intact, Normal speech - Psych Psych: Normal mood, Normal affect Results - Vitals Vitals: Oxygen O2 Source Room air - Labs Labs: Laboratory Tests 03/14/23 03/14/23 00:40 00:40 WBC 9.5 RBC 4.60 Hgb 13.9 Hct 41.8 MCV 90.9 MCH 30.2 MCHC 33.3 RDW 13.2 Plt Count 303 MPV 8.9 Neut # (Auto) 4.4 Lymph # (Auto) 3.5 [place] # (Auto) 0.9 Eos # (Auto) 0.6 Baso # (Auto) 0.1 Absolute Nucleated RBC 0.00 Nucleated RBC % 0.0 Sodium 137 Potassium 3.6 Chloride 102 Carbon Dioxide 31 Anion Gap 4.0 L BUN 9 Creatinine 0.8 Estimated GFR (MDRD) 72 L Glucose 84 Calcium 9.4 Total Bilirubin 0.4 AST 96 H ALT 36 Alkaline Phosphatase 74 Total Protein 6.8 Albumin 3.9 Globulin 2.9 Albumin/Globulin Ratio 1.3 Lipase 24 PD Medical Decision Making - ED course Complexity details: reviewed old records, reviewed results, re-evaluated patient, considered differential, d/w patient, d/w family ED course: The pt actually appeared quite well, and sx were recurrent. She did have abdominal tenderness, so I worked her up with CBC and ER abd panel, which were unremarkable. The pt reported feeling quite a bit better after symptomatic treatment in the ED, and I felt she was stable for d/c home. We have discussed the usual indications for follow-up and return. Departure - Departure Disposition: Home, Self Care Clinical Impression: Abdominal pain Qualifiers: Abdominal location: left upper quadrant Qualified Code(s): R10.12 - Left upper quadrant pain Gastroesophageal reflux disease Qualifiers: Esophagitis presence: esophagitis presence not specified Qualified Code(s): K21.9 - Gastro-esophageal reflux disease without esophagitis Condition: Stable Instructions: ED Abdominal Pain Female Non-Specific Abdominal Pain, ED GERD Comments: You have been treated tonight with pain medication and something for your stomach and nausea. Your blood pressure is much better here than what you devante sured at home, likely due to increased comfort level and the effects of your pain medicine. Your labs look good tonight and there is no evidence of an emergent condition at this time. Please continue your plans to follow-up with your specialists about your various medical problems. Forms: PCP List Discharge Date/Time: 03/14/23 02:15
[2023-03-14 02:23] VITALS: BP 152/86
== END 2023-03-14 02:15 | disposition home or self-care (01) ==
LOC: EDUNIT# → ED 00:02
DX: K21.00 Gastro-esophageal reflux disease with esophagitis, without bleeding (principal); R10.12 Left upper quadrant pain; I10 Essential (primary) hypertension; J44.9 Chronic obstructive pulmonary disease, unspecified; E03.9 Hypothyroidism, unspecified; Z79.899 Other long term (current) drug therapy
CPT/HCPCS: 36415; 80053; 83690; 85025; 99283; A9270; J1170